=== PATIENT | female | born 1940 | race Caucasian/White ===

== ENCOUNTER 2017-04-07 13:53 | Outpatient (CLI) | payer MEDICARE ==
[2017-04-07 17:55] LABS: BASOPHILS # (AUTO) 0.1 10^3/uL (0.0-0.1); BASOPHILS % (AUTO) 1.1 %; EOSINOPHILS # (AUTO) 0.4 10^3/uL (0.0-0.7); EOSINOPHILS % (AUTO) 4.5 %; HCT - HEMATOCRIT 42.7 % (37.0-47.0); HGB - HEMOGLOBIN 13.8 g/dL (12.0-16.0); LYMPHOCYTES # (AUTO) 1.5 10^3/uL (1.5-3.5); LYMPHOCYTES % (AUTO) 17.7 %; MEAN CORPUSCULAR HEMOGLOBIN 27.9 pg (27.0-31.0); MEAN CORPUSCULAR HGB CONC 32.2 g/dL (32.0-36.0); MEAN CORPUSCULAR VOLUME 86.4 fL (81.0-99.0); MEAN PLATELET VOLUME 8.5 fL (7.9-10.8); MONOCYTES # (AUTO) 0.6 10^3/uL (0.0-1.0); MONOCYTES % (AUTO) 6.7 %; NEUTROPHILS # (AUTO) 5.8 10^3/uL (1.5-6.6); NUCLEATED RED BLOOD CELLS AUTO 0.1 /100WBC; RED BLOOD COUNT 4.94 10^6/uL (4.20-5.40); UNCORRECTED WHITE BLOOD COUNT 8.3 x10^3/uL; WHITE BLOOD COUNT 8.3 x10^3/uL (4.8-10.8)
[2017-04-07 18:34] LABS: PLATELET MORPHOLOGY 1+ GIANT PLATELETS (NORMAL)
== END 2017-04-07 13:54 | disposition home or self-care (01) ==
LOC: LAB.F 13:53
PROVIDERS: ATTEND Family Medicine
DX: D47.3 Essential (hemorrhagic) thrombocythemia (principal)
CPT/HCPCS: 36415; 85025

== ENCOUNTER 2017-04-25 12:46 | Outpatient (CLI) | payer MEDICARE ==
[2017-04-25 19:20] LABS: BASOPHILS # (AUTO) 0.1 10^3/uL (0.0-0.1); BASOPHILS % (AUTO) 1.9 %; EOSINOPHILS # (AUTO) 0.4 10^3/uL (0.0-0.7); EOSINOPHILS % (AUTO) 6.1 %; HCT - HEMATOCRIT 43.8 % (37.0-47.0); HGB - HEMOGLOBIN 13.8 g/dL (12.0-16.0); LYMPHOCYTES # (AUTO) 1.6 10^3/uL (1.5-3.5); LYMPHOCYTES % (AUTO) 23.8 %; MEAN CORPUSCULAR HGB CONC 31.4 g/dL (32.0-36.0); MEAN CORPUSCULAR VOLUME 85.8 fL (81.0-99.0); MEAN PLATELET VOLUME 8.9 fL (7.9-10.8); MONOCYTES # (AUTO) 0.5 10^3/uL (0.0-1.0); MONOCYTES % (AUTO) 7.4 %; NEUTROPHILS # (AUTO) 4.1 10^3/uL (1.5-6.6); NEUTROPHILS % (AUTO) 60.8 %; NUCLEATED RED BLOOD CELLS AUTO 0.1 /100WBC; RED BLOOD COUNT 5.11 10^6/uL (4.20-5.40); UNCORRECTED WHITE BLOOD COUNT 6.7 x10^3/uL; WHITE BLOOD COUNT 6.7 x10^3/uL (4.8-10.8)
[2017-04-25 21:44] LABS: PLATELET ESTIMATE, MANUAL INCREASED (>450,000) (NORMAL); PLATELET MORPHOLOGY 2+ GIANT PLATELETS (NORMAL)
== END 2017-04-25 12:47 | disposition home or self-care (01) ==
LOC: LAB.F 12:46
PROVIDERS: ATTEND Family Medicine
DX: D47.3 Essential (hemorrhagic) thrombocythemia (principal)
CPT/HCPCS: 36415; 85025

== ENCOUNTER 2017-05-23 13:57 | Outpatient (CLI) | payer MEDICARE ==
[2017-05-23 18:48] LABS: BASOPHILS # (AUTO) 0.1 10^3/uL (0.0-0.1); BASOPHILS % (AUTO) 1.9 %; EOSINOPHILS # (AUTO) 0.3 10^3/uL (0.0-0.7); EOSINOPHILS % (AUTO) 4.1 %; HCT - HEMATOCRIT 43.7 % (37.0-47.0); HGB - HEMOGLOBIN 14.2 g/dL (12.0-16.0); LYMPHOCYTES # (AUTO) 1.6 10^3/uL (1.5-3.5); LYMPHOCYTES % (AUTO) 19.9 %; MEAN CORPUSCULAR HEMOGLOBIN 26.7 pg (27.0-31.0); MEAN CORPUSCULAR HGB CONC 32.5 g/dL (32.0-36.0); MEAN PLATELET VOLUME 8.6 fL (7.9-10.8); MONOCYTES # (AUTO) 0.5 10^3/uL (0.0-1.0); MONOCYTES % (AUTO) 5.9 %; NEUTROPHILS # (AUTO) 5.3 10^3/uL (1.5-6.6); NEUTROPHILS % (AUTO) 68.2 %; NUCLEATED RED BLOOD CELLS AUTO 0.2 /100WBC; RED BLOOD COUNT 5.33 10^6/uL (4.20-5.40); RED CELL DISTRIBUTION WIDTH 14.9 % (12.0-15.0); UNCORRECTED WHITE BLOOD COUNT 7.8 x10^3/uL; WHITE BLOOD COUNT 7.8 x10^3/uL (4.8-10.8)
[2017-05-23 21:13] LABS: PLATELET ESTIMATE, MANUAL INCREASED (>450,000) (NORMAL); PLATELET MORPHOLOGY 2+ GIANT PLATELETS (NORMAL)
== END 2017-05-23 13:58 | disposition home or self-care (01) ==
LOC: LAB.F 13:57
PROVIDERS: ATTEND Family Medicine
DX: D47.3 Essential (hemorrhagic) thrombocythemia (principal)
CPT/HCPCS: 36415; 85025

== ENCOUNTER 2017-11-21 12:55 | Outpatient (CLI) | payer MEDICARE ==
--- NOTE | 2017-11-21 15:24 | XRAY Report ---
TWO VIEW CHEST: 11/21/2017 CLINICAL INDICATION: Chronic cough. FINDINGS: Frontal and lateral views of the chest demonstrate a normal cardiac silhouette. There is left suprahilar consolidation, suspicious for a central mass. Chest CT with contrast is recommended for further evaluation. No effusion or pneumothorax is present. IMPRESSION: LEFT SUPRAHILAR CONSOLIDATION, SUSPICIOUS FOR A CENTRAL MASS. CHEST CT WITH CONTRAST IS RECOMMENDED FOR FURTHER EVALUATION. TD: 11/21/2017 15:22
== END 2017-11-21 12:56 | disposition home or self-care (01) ==
LOC: DI.S 12:55
PROVIDERS: ATTEND Nurse Practitioner Family
DX: R91.8 Other nonspecific abnormal finding of lung field (principal)
CPT/HCPCS: 71046; 93005

== ENCOUNTER 2017-11-25 11:37 | Outpatient (CLI) | payer MEDICARE ==
[2017-11-25] MEDS ORDERED: IOPAMIDOL-300 100 ML VIAL ONE (11:55)
[2017-11-25] MEDS ORDERED: IOPAMIDOL-300 100 ML VIAL IVP ONE (13:05)
--- NOTE | 2017-11-25 16:05 | CT Report ---
CT CHEST WITH CONTRAST: 11/25/2017 CLINICAL INDICATION: Chronic cough, hypoxemia. TECHNIQUE: Axial CT images of the chest were obtained with 100 mL Isovue 300 intravenously. COMPARISON: Plain film 11/21/2017. FINDINGS: The heart and great vessels demonstrate mild atherosclerotic calcifications. There is an occlusion of the left upper lobe bronchus, compatible with an endobronchial mass, as well as narrowing of the lingular bronchus. The occlusion of the left upper lobe bronchus produces partial collapse of the left upper lobe, with likely nodules seen in the aerated portions of the left upper lobe measuring up to 1.2 cm. The central component of the collapsed left upper lobe demonstrates heterogeneous internal attenuation, and measures 7.3 x 3.4 cm. A nodule is seen in the superior segment of the right lower lobe, measuring 11 x 11 mm, with a small focus of adjacent infiltrate. Extensive emphysematous changes are seen. No effusion or pneumothorax is present. Limited evaluation of upper abdominal structures demonstrates normal adrenal glands. There is a hypodense lesion in the anterior right lobe of the liver, measuring 2.0 x 1.0 cm, with Hounsfield units higher than expected for a simple cyst, and smaller hypodensities are seen at the dome of the liver (5 mm in diameter), and anteriorly in the medial segment of the left lobe of the liver (5 mm in diameter), suspicious for hepatic metastases. Osseous structures demonstrate degenerative changes. IMPRESSION: LIKELY LEFT UPPER LOBE MALIGNANCY, WITH SATELLITE NODULES AND POSSIBLE CONTRALATERAL SPREAD WELL POSSIBLE HEPATIC METASTATIC DISEASE. GIVEN THE CENTRAL LOCATION, THIS MAY REPRESENT A SMALL CELL CARCINOMA. CORRELATION WITH BRONCHOSCOPY IS RECOMMENDED. In accordance with CT protocol optimization, one or more of the following dose reduction techniques were utilized for this exam: automated exposure control, adjustment of mA and/or KV based on patient size, or use of iterative reconstructive technique. TD: 11/25/2017 16:04
== END 2017-11-25 11:38 | disposition home or self-care (01) ==
LOC: DI 11:37
PROVIDERS: ATTEND Nurse Practitioner Family
DX: R91.8 Other nonspecific abnormal finding of lung field (principal); R05 Cough; R09.02 Hypoxemia; K76.9 Liver disease, unspecified
CPT/HCPCS: 71260; Q9967

== ENCOUNTER 2018-01-05 12:32 | Outpatient (CLI) | payer MEDICARE ==
[2018-01-05 13:16] LABS: CREATININE 0.5 mg/dL (0.4-1.0)
== END 2018-01-05 12:33 | disposition home or self-care (01) ==
LOC: LAB 12:32
PROVIDERS: ATTEND Radiology Radiation Oncology
DX: C34.12 Malignant neoplasm of upper lobe, left bronchus or lung (principal); C79.51 Secondary malignant neoplasm of bone
CPT/HCPCS: 36415; 82565; 84520

== ENCOUNTER 2018-01-06 07:36 | Outpatient (CLI) | payer MEDICARE ==
[2018-01-06] MEDS ORDERED: GADOBUTROL 7.5 MMOL/7.5 ML VIAL ONE (08:00)
[2018-01-06] MEDS ORDERED: GADOBUTROL 7.5 MMOL/7.5 ML VIAL IVP ONE (09:18)
--- NOTE | 2018-01-06 10:21 | MRI Preliminary Report ---
Exam: MRI BRAIN W/WO IMPRESSION: 1. A punctate acute right frontal cortical infarct is suspected. 2. A subtle focus of enhancement in the right temporal lobe as discussed above. It is uncertain if th is reflects a subtle early intracranial metastasis alternatively a low flow vascular lesion such as a small developmental venous anomaly or telangiectasia. A short interval follow-up examination would b e of value to assess for interval change. The ordering physician is being contacted at 10:20 AM on 01/06/2018 [facility] SITE ID: [id number]
--- NOTE | 2018-01-06 10:36 | MRI Preliminary Report ---
Exam: MRI CERVICAL SPINE W/WO IMPRESSION: 1. Low T1-weighted marrow signal which enhances involving the C7 vertebral body is suspicious for met astatic disease given history of lung cancer. 2. No intramedullary enhancement is seen to suggest metastatic disease to the cervical spinal cord. 3. T2 hyperintense signal in the cervical spinal cord at C6 is consistent with myelomalacia. There is central canal stenosis at the level of the C5-C6 disk space. 4. Degenerative disk disease is seen at most levels in the cervical spine particularly at C5-C6. 5. Multilevel foraminal stenosis is present. This is due to a combination of disk/osteophyte complex formation, including joint spurring, and facet hypertrophy 6. Left true vocal cord paralysis is noted [facility] SITE ID: [id number]
--- NOTE | 2018-01-06 10:38 | MRI Report ---
EXAM: MRI BRAIN WITHOUT AND WITH CONTRAST EXAM DATE: 01/06/2018 09:42 AM. CLINICAL HISTORY: Malignant neoplasm of left lung. COMPARISON: PET scan 12/16/2017. Cervical spine MRI from today. TECHNIQUE: Multiplanar, multisequence T1-weighted and fluid-sensitive MR sequences of the brain were performed. Sequences optimized for routine evaluation. Other: None. IV Contrast: 5.5 mL Gadavist. FINDINGS: A punctate focus of restricted diffusion signal is seen involving the right frontal cortex on image 1 68 of series 505 with subtle low ADC map signal seen in this region. Punctate FLAIR hyperintense sign al is seen in this region. Motion degradation is present. Ventricles and sulci are within normal limits. No extra-axial fluid collection is present. No cerebellar tonsillar ectopia is present. Expected flow voids are seen in the major intracranial vessels at the skull base. No abnormal magnetic susceptibility is present in the brain parenchyma. No mass is present in either orbit. In the right temporal lobe there is a 3.6 mm focus of somewhat oval enhancement which appears to invo lve the subcortical white matter and overlying cortex. This is seen on image 71 of series 1303. There is no associated T2 or FLAIR hyperintense signal. There is no associated mass effect. No other abnormal enhancement is present in the brain parenchyma. Expected enhancement is seen in the major dural venous sinuses. The cavernous sinuses enhance in symmetric fashion. IMPRESSION: 1. A punctate acute right frontal cortical infarct is favored over artifact. 2. A subtle focus of enhancement in the right temporal lobe is discussed above. It is uncertain if th is reflects a subtle early intracranial metastasis or, alternatively, a low flow vascular lesion such as a small developmental venous anomaly or telangiectasia. The latter is favored. A short interval f ollow-up examination would be of value to assess for interval change. The ordering physician was phoned with the results at 10:30 AM on 01/06/2018. [facility] Referring Provider Line: [phone] SITE ID: [id number]
--- NOTE | 2018-01-06 11:26 | MRI Report ---
EXAM: MRI CERVICAL SPINE WITHOUT AND WITH CONTRAST EXAM DATE: 01/06/2018 09:42 AM. CLINICAL HISTORY: Malignant neoplasm of upper lobe, left lung. COMPARISON: MRI brain today. PET scan 12/16/2017. No report is available for the PET scan.. TECHNIQUE: Multiplanar, multisequence T1-weighted and fluid-sensitive sequences of the cervical spine before and after administration of intravenous contrast. Other: None. IV contrast: 5.5 mL Gadavist. FINDINGS: There is medial position of the left true vocal cord. There is low T1-weighted signal which enhances, involving the C7 vertebral body particularly towards the left. Low T1-weighted signal which enhances involving the C3, C4, C5, and C6 vertebral bodies is centered o n the endplates and is felt to be diskogenic in nature. No enhancing marrow signal or edema is seen i n the inferior endplate of the C6 vertebral body. No abnormal enhancement is present in the cervical spinal cord. Minimal patchy T2 hyperintense signal in the cervical spinal cord at the level of the C6 vertebral ilene dy on image 8 of series 401 is not excluded Ligamentum flavum thickening is seen at C3-C4, C5-C6, and T1-T2. C2-C3: No central canal or foraminal stenosis. Right facet hypertrophy is noted. C3-C4: A mild broad-based posterior disk protrusion is seen. Disk/osteophyte complex formation is see n involving the posterior lateral margin of the disk bilaterally and there is bilateral uncovertebral joint spurring. Facet hypertrophy is seen on the right. Bilateral foraminal stenosis is seen. Minima l flattening of the ventral cervical spinal cord is noted. C4-C5: Disk/osteophyte complex formation is seen involving the posterior lateral and foraminal margin of the disk. Right facet hypertrophy is present. Bilateral uncovertebral joint spurring is seen. Wale ateral foraminal stenosis. A minimal posterior disk protrusion is seen. C5-C6: Severe loss of disk space height is seen. A posterior protrusion of disk and osteophyte is see n. There is flattening of the ventral cervical spinal cord. Central canal measures 7 mm. Bilateral fo raminal stenosis is present. Bilateral uncovertebral joint spurring is seen. C6-C7: Mild posterior disk protrusion is seen. Bilateral uncovertebral joint spurring is seen. Bilate ral foraminal stenosis is present. No central canal stenosis. C7-T1: No posterior disk protrusion. IMPRESSION: 1. Low T1-weighted marrow signal which enhances involving the C7 vertebral body is suspicious for met astatic disease, given history of lung cancer and the findings on the comparison PET scan. 2. No intramedullary enhancement is seen to suggest metastatic disease to the cervical spinal cord. 3. T2 hyperintense signal in the cervical spinal cord at C6 is consistent with myelomalacia. There is central canal stenosis at the level of the C5-C6 disk space. 4. Degenerative disk disease is seen at most levels in the cervical spine, particularly at C5-C6. 5. Multilevel foraminal stenosis is present. This is due to a combination of disk/osteophyte complex formation, uncovertebral joint spurring, and facet hypertrophy. 6. Left true vocal cord paralysis is noted. [facility] Referring Provider Line: [phone] SITE ID: [id number]
== END 2018-01-06 07:37 | disposition home or self-care (01) ==
LOC: DI 07:36
PROVIDERS: ATTEND Radiology Radiation Oncology
DX: C34.12 Malignant neoplasm of upper lobe, left bronchus or lung (principal); C79.51 Secondary malignant neoplasm of bone; M50.21 Other cervical disc displacement, high cervical region; M47.892 Other spondylosis, cervical region; M50.31 Other cervical disc degeneration, high cervical region; J38.01 Paralysis of vocal cords and larynx, unilateral; R93.7 Abnormal findings on diagnostic imaging of other parts of musculoskeletal system
CPT/HCPCS: 70553; 72156; A9585

== ENCOUNTER 2019-04-17 10:41 | Outpatient (CLI) | payer MEDICARE, OTHER | END 2019-04-17 10:42 | disposition home or self-care (01) | LOC: LAB 10:41 | PROVIDERS: ATTEND Internal Medicine Medical Oncology | DX: C34.10 Malignant neoplasm of upper lobe, unspecified bronchus or lung (principal) | CPT/HCPCS: 36415; 85049 ==

== ENCOUNTER 2019-11-01 13:33 | Outpatient (CLI) | payer MEDICARE, OTHER ==
[2019-11-01 14:12] LABS: BASOPHILS # (AUTO) 0.1 10^3/uL (0.0-0.1); BASOPHILS % (AUTO) 1.2 %; EOSINOPHILS # (AUTO) 0.3 10^3/uL (0.0-0.7); EOSINOPHILS % (AUTO) 4.8 %; HGB - HEMOGLOBIN 14.9 g/dL (12.0-16.0); LYMPHOCYTES # (AUTO) 0.7 10^3/uL (1.5-3.5); LYMPHOCYTES % (AUTO) 12.6 %; MEAN CORPUSCULAR HEMOGLOBIN 29.6 pg (27.0-31.0); MEAN CORPUSCULAR HGB CONC 32.3 g/dL (32.0-36.0); MEAN CORPUSCULAR VOLUME 91.7 fL (81.0-99.0); MEAN PLATELET VOLUME 10.3 fL (7.9-10.8); MONOCYTES # (AUTO) 0.6 10^3/uL (0.0-1.0); MONOCYTES % (AUTO) 10.2 %; NEUTROPHILS # (AUTO) 4.1 10^3/uL (1.5-6.6); NEUTROPHILS % (AUTO) 70.7 %; PLT - PLATELET COUNT 722 10^3/uL (130-450); RED BLOOD COUNT 5.03 10^6/uL (4.20-5.40); RED CELL DISTRIBUTION WIDTH 16.7 % (12.0-15.0); WHITE BLOOD COUNT 5.9 x10^3/uL (4.8-10.8)
== END 2019-11-01 13:34 | disposition home or self-care (01) ==
LOC: LAB 13:33
PROVIDERS: ATTEND Physician Assistant
DX: D47.3 Essential (hemorrhagic) thrombocythemia (principal)
CPT/HCPCS: 36415; 85025

== ENCOUNTER 2019-11-08 09:47 | Outpatient (CLI) | payer MEDICARE, OTHER ==
[2019-11-08 10:44] LABS: BASOPHILS # (AUTO) 0.1 10^3/uL (0.0-0.1); BASOPHILS % (AUTO) 0.9 %; EOSINOPHILS # (AUTO) 0.2 10^3/uL (0.0-0.7); EOSINOPHILS % (AUTO) 2.9 %; HGB - HEMOGLOBIN 14.5 g/dL (12.0-16.0); LYMPHOCYTES # (AUTO) 0.9 10^3/uL (1.5-3.5); LYMPHOCYTES % (AUTO) 12.2 %; MEAN CORPUSCULAR HEMOGLOBIN 29.8 pg (27.0-31.0); MEAN CORPUSCULAR HGB CONC 31.8 g/dL (32.0-36.0); MEAN CORPUSCULAR VOLUME 93.6 fL (81.0-99.0); MEAN PLATELET VOLUME 10.8 fL (7.9-10.8); MONOCYTES # (AUTO) 0.8 10^3/uL (0.0-1.0); MONOCYTES % (AUTO) 10.6 %; NEUTROPHILS # (AUTO) 5.5 10^3/uL (1.5-6.6); NEUTROPHILS % (AUTO) 71.8 %; PLT - PLATELET COUNT 664 10^3/uL (130-450); RED BLOOD COUNT 4.87 10^6/uL (4.20-5.40); RED CELL DISTRIBUTION WIDTH 17.6 % (12.0-15.0); WHITE BLOOD COUNT 7.6 x10^3/uL (4.8-10.8)
== END 2019-11-08 09:48 | disposition home or self-care (01) ==
LOC: LAB 09:47
PROVIDERS: ATTEND Physician Assistant
DX: D47.3 Essential (hemorrhagic) thrombocythemia (principal)
CPT/HCPCS: 36415; 85025

== ENCOUNTER 2019-11-22 11:12 | Outpatient (CLI) | payer MEDICARE, OTHER ==
[2019-11-22 11:38] LABS: BASOPHILS # (AUTO) 0.1 10^3/uL (0.0-0.1); BASOPHILS % (AUTO) 1.3 %; EOSINOPHILS # (AUTO) 0.4 10^3/uL (0.0-0.7); EOSINOPHILS % (AUTO) 6.9 %; HGB - HEMOGLOBIN 14.8 g/dL (12.0-16.0); LYMPHOCYTES # (AUTO) 0.9 10^3/uL (1.5-3.5); LYMPHOCYTES % (AUTO) 14.8 %; MEAN CORPUSCULAR HEMOGLOBIN 29.7 pg (27.0-31.0); MEAN CORPUSCULAR HGB CONC 31.2 g/dL (32.0-36.0); MEAN CORPUSCULAR VOLUME 95.4 fL (81.0-99.0); MEAN PLATELET VOLUME 10.2 fL (7.9-10.8); MONOCYTES # (AUTO) 0.4 10^3/uL (0.0-1.0); MONOCYTES % (AUTO) 6.9 %; NEUTROPHILS # (AUTO) 4.3 10^3/uL (1.5-6.6); NEUTROPHILS % (AUTO) 69.6 %; RED BLOOD COUNT 4.98 10^6/uL (4.20-5.40); RED CELL DISTRIBUTION WIDTH 17.7 % (12.0-15.0); WHITE BLOOD COUNT 6.2 x10^3/uL (4.8-10.8)
[2019-11-22 12:11] LABS: PLATELET MORPHOLOGY 1+ LARGE PLATELETS (NORMAL); PLT - PLATELET COUNT 810 10^3/uL (130-450)
[2019-11-22 12:12] LABS: PLATELET ESTIMATE, MANUAL INCREASED (>450,000) (NORMAL); RBC MORPHOLOGY (MULTIPLE) NORMAL APPEARANCE (NORMAL)
== END 2019-11-22 11:13 | disposition home or self-care (01) ==
LOC: LAB 11:12
PROVIDERS: ATTEND Physician Assistant
DX: D47.3 Essential (hemorrhagic) thrombocythemia (principal)
CPT/HCPCS: 36415; 85025

== ENCOUNTER 2019-11-29 11:21 | Outpatient (CLI) | payer MEDICARE, OTHER ==
[2019-11-29 12:08] LABS: BASOPHILS # (AUTO) 0.1 10^3/uL (0.0-0.1); EOSINOPHILS # (AUTO) 0.2 10^3/uL (0.0-0.7); EOSINOPHILS % (AUTO) 2.4 %; HGB - HEMOGLOBIN 13.8 g/dL (12.0-16.0); LYMPHOCYTES # (AUTO) 0.9 10^3/uL (1.5-3.5); LYMPHOCYTES % (AUTO) 9.4 %; MEAN CORPUSCULAR HGB CONC 31.8 g/dL (32.0-36.0); MEAN CORPUSCULAR VOLUME 94.3 fL (81.0-99.0); MEAN PLATELET VOLUME 10.6 fL (7.9-10.8); MONOCYTES % (AUTO) 10.3 %; NEUTROPHILS # (AUTO) 7.5 10^3/uL (1.5-6.6); NEUTROPHILS % (AUTO) 75.5 %; PLT - PLATELET COUNT 712 10^3/uL (130-450); RED CELL DISTRIBUTION WIDTH 18.1 % (12.0-15.0); WHITE BLOOD COUNT 9.9 x10^3/uL (4.8-10.8)
== END 2019-11-29 11:22 | disposition home or self-care (01) ==
LOC: LAB 11:21
PROVIDERS: ATTEND Physician Assistant
DX: D47.3 Essential (hemorrhagic) thrombocythemia (principal)
CPT/HCPCS: 36415; 85025

== ENCOUNTER 2019-12-13 08:53 | Outpatient (CLI) | payer MEDICARE, OTHER ==
[2019-12-13 09:19] LABS: BASOPHILS # (AUTO) 0.1 10^3/uL (0.0-0.1); BASOPHILS % (AUTO) 1.4 %; EOSINOPHILS # (AUTO) 0.4 10^3/uL (0.0-0.7); EOSINOPHILS % (AUTO) 6.5 %; HGB - HEMOGLOBIN 15.1 g/dL (12.0-16.0); LYMPHOCYTES # (AUTO) 1.1 10^3/uL (1.5-3.5); LYMPHOCYTES % (AUTO) 16.7 %; MEAN CORPUSCULAR HEMOGLOBIN 30.2 pg (27.0-31.0); MEAN CORPUSCULAR HGB CONC 31.7 g/dL (32.0-36.0); MEAN CORPUSCULAR VOLUME 95.4 fL (81.0-99.0); MEAN PLATELET VOLUME 10.2 fL (7.9-10.8); MONOCYTES # (AUTO) 0.5 10^3/uL (0.0-1.0); NEUTROPHILS # (AUTO) 4.4 10^3/uL (1.5-6.6); NEUTROPHILS % (AUTO) 66.8 %; RED CELL DISTRIBUTION WIDTH 17.8 % (12.0-15.0); WHITE BLOOD COUNT 6.6 x10^3/uL (4.8-10.8)
[2019-12-13 12:58] LABS: PLT - PLATELET COUNT 897 10^3/uL (130-450)
== END 2019-12-13 08:54 | disposition home or self-care (01) ==
LOC: LAB 08:53
PROVIDERS: ATTEND Physician Assistant
DX: D47.3 Essential (hemorrhagic) thrombocythemia (principal)
CPT/HCPCS: 36415; 85025

== ENCOUNTER 2019-12-20 11:31 | Outpatient (CLI) | payer MEDICARE, OTHER ==
[2019-12-20 11:54] LABS: BASOPHILS # (AUTO) 0.1 10^3/uL (0.0-0.1); BASOPHILS % (AUTO) 1.4 %; EOSINOPHILS # (AUTO) 0.2 10^3/uL (0.0-0.7); EOSINOPHILS % (AUTO) 3.3 %; HGB - HEMOGLOBIN 14.4 g/dL (12.0-16.0); LYMPHOCYTES # (AUTO) 0.9 10^3/uL (1.5-3.5); LYMPHOCYTES % (AUTO) 12.6 %; MEAN CORPUSCULAR HEMOGLOBIN 29.9 pg (27.0-31.0); MEAN CORPUSCULAR VOLUME 96.5 fL (81.0-99.0); MEAN PLATELET VOLUME 10.4 fL (7.9-10.8); MONOCYTES # (AUTO) 0.7 10^3/uL (0.0-1.0); MONOCYTES % (AUTO) 9.6 %; NEUTROPHILS # (AUTO) 5.3 10^3/uL (1.5-6.6); NEUTROPHILS % (AUTO) 72.4 %; PLT - PLATELET COUNT 733 10^3/uL (130-450); RED BLOOD COUNT 4.81 10^6/uL (4.20-5.40); RED CELL DISTRIBUTION WIDTH 18.7 % (12.0-15.0); WHITE BLOOD COUNT 7.4 x10^3/uL (4.8-10.8)
== END 2019-12-20 11:32 | disposition home or self-care (01) ==
LOC: LAB 11:31
PROVIDERS: ATTEND Physician Assistant
DX: D47.3 Essential (hemorrhagic) thrombocythemia (principal)
CPT/HCPCS: 36415; 85025

== ENCOUNTER 2020-01-10 10:18 | Outpatient (CLI) | payer MEDICARE, OTHER ==
[2020-01-10 10:34] LABS: BASOPHILS # (AUTO) 0.1 10^3/uL (0.0-0.1); BASOPHILS % (AUTO) 1.4 %; EOSINOPHILS # (AUTO) 0.3 10^3/uL (0.0-0.7); EOSINOPHILS % (AUTO) 3.6 %; HGB - HEMOGLOBIN 15.2 g/dL (12.0-16.0); LYMPHOCYTES # (AUTO) 1.1 10^3/uL (1.5-3.5); LYMPHOCYTES % (AUTO) 15.2 %; MEAN CORPUSCULAR HEMOGLOBIN 30.1 pg (27.0-31.0); MEAN CORPUSCULAR HGB CONC 31.4 g/dL (32.0-36.0); MEAN CORPUSCULAR VOLUME 95.8 fL (81.0-99.0); MEAN PLATELET VOLUME 10.3 fL (7.9-10.8); MONOCYTES # (AUTO) 0.8 10^3/uL (0.0-1.0); MONOCYTES % (AUTO) 10.4 %; PLT - PLATELET COUNT 698 10^3/uL (130-450); RED BLOOD COUNT 5.05 10^6/uL (4.20-5.40); RED CELL DISTRIBUTION WIDTH 17.9 % (12.0-15.0); WHITE BLOOD COUNT 7.3 x10^3/uL (4.8-10.8)
== END 2020-01-10 10:19 | disposition home or self-care (01) ==
LOC: LAB 10:18
PROVIDERS: ATTEND Physician Assistant
DX: D47.3 Essential (hemorrhagic) thrombocythemia (principal)
CPT/HCPCS: 36415; 85025

== ENCOUNTER 2020-01-25 10:18 | Outpatient (CLI) | payer MEDICARE, OTHER ==
[2020-01-25 10:35] LABS: BASOPHILS # (AUTO) 0.1 10^3/uL (0.0-0.1); BASOPHILS % (AUTO) 1.4 %; EOSINOPHILS # (AUTO) 0.2 10^3/uL (0.0-0.7); EOSINOPHILS % (AUTO) 4.9 %; HGB - HEMOGLOBIN 15.5 g/dL (12.0-16.0); LYMPHOCYTES % (AUTO) 22.8 %; MEAN CORPUSCULAR HEMOGLOBIN 30.9 pg (27.0-31.0); MEAN CORPUSCULAR HGB CONC 31.6 g/dL (32.0-36.0); MEAN CORPUSCULAR VOLUME 97.8 fL (81.0-99.0); MEAN PLATELET VOLUME 10.2 fL (7.9-10.8); MONOCYTES # (AUTO) 0.5 10^3/uL (0.0-1.0); MONOCYTES % (AUTO) 12.2 %; NEUTROPHILS # (AUTO) 2.5 10^3/uL (1.5-6.6); NEUTROPHILS % (AUTO) 58.2 %; PLT - PLATELET COUNT 595 10^3/uL (130-450); RED BLOOD COUNT 5.02 10^6/uL (4.20-5.40); RED CELL DISTRIBUTION WIDTH 16.8 % (12.0-15.0); WHITE BLOOD COUNT 4.3 x10^3/uL (4.8-10.8)
== END 2020-01-25 10:19 | disposition home or self-care (01) ==
LOC: LAB 10:18
PROVIDERS: ATTEND Physician Assistant
DX: D47.3 Essential (hemorrhagic) thrombocythemia (principal)
CPT/HCPCS: 36415; 85025

== ENCOUNTER 2020-01-31 10:11 | Outpatient (CLI) | payer MEDICARE, OTHER ==
[2020-01-31 10:51] LABS: BASOPHILS # (AUTO) 0.1 10^3/uL (0.0-0.1); BASOPHILS % (AUTO) 1.4 %; EOSINOPHILS # (AUTO) 0.2 10^3/uL (0.0-0.7); EOSINOPHILS % (AUTO) 3.2 %; HGB - HEMOGLOBIN 14.8 g/dL (12.0-16.0); LYMPHOCYTES % (AUTO) 15.3 %; MEAN CORPUSCULAR HEMOGLOBIN 30.5 pg (27.0-31.0); MEAN CORPUSCULAR HGB CONC 31.9 g/dL (32.0-36.0); MEAN CORPUSCULAR VOLUME 95.7 fL (81.0-99.0); MEAN PLATELET VOLUME 10.2 fL (7.9-10.8); MONOCYTES # (AUTO) 0.5 10^3/uL (0.0-1.0); MONOCYTES % (AUTO) 8.1 %; NEUTROPHILS # (AUTO) 4.5 10^3/uL (1.5-6.6); NEUTROPHILS % (AUTO) 71.4 %; PLT - PLATELET COUNT 595 10^3/uL (130-450); RED BLOOD COUNT 4.85 10^6/uL (4.20-5.40); WHITE BLOOD COUNT 6.3 x10^3/uL (4.8-10.8)
== END 2020-01-31 10:12 | disposition home or self-care (01) ==
LOC: LAB 10:11
PROVIDERS: ATTEND Physician Assistant
DX: D47.3 Essential (hemorrhagic) thrombocythemia (principal)
CPT/HCPCS: 36415; 85025

== ENCOUNTER 2020-02-15 11:10 | Outpatient (CLI) | payer MEDICARE, OTHER ==
[2020-02-15 11:39] LABS: BASOPHILS # (AUTO) 0.1 10^3/uL (0.0-0.1); BASOPHILS % (AUTO) 1.4 %; EOSINOPHILS # (AUTO) 0.2 10^3/uL (0.0-0.7); HGB - HEMOGLOBIN 15.2 g/dL (12.0-16.0); LYMPHOCYTES % (AUTO) 19.3 %; MEAN CORPUSCULAR HEMOGLOBIN 31.2 pg (27.0-31.0); MEAN CORPUSCULAR HGB CONC 32.1 g/dL (32.0-36.0); MEAN CORPUSCULAR VOLUME 97.1 fL (81.0-99.0); MEAN PLATELET VOLUME 10.5 fL (7.9-10.8); MONOCYTES # (AUTO) 0.7 10^3/uL (0.0-1.0); MONOCYTES % (AUTO) 13.9 %; NEUTROPHILS % (AUTO) 60.6 %; PLT - PLATELET COUNT 589 10^3/uL (130-450); RED BLOOD COUNT 4.87 10^6/uL (4.20-5.40); RED CELL DISTRIBUTION WIDTH 15.9 % (12.0-15.0)
== END 2020-02-15 11:11 | disposition home or self-care (01) ==
LOC: LAB 11:10
PROVIDERS: ATTEND Physician Assistant
DX: D47.3 Essential (hemorrhagic) thrombocythemia (principal)
CPT/HCPCS: 36415; 85025

== ENCOUNTER 2020-02-22 10:41 | Outpatient (CLI) | payer MEDICARE, OTHER ==
[2020-02-22 10:55] LABS: BASOPHILS # (AUTO) 0.1 10^3/uL (0.0-0.1); BASOPHILS % (AUTO) 1.2 %; EOSINOPHILS # (AUTO) 0.2 10^3/uL (0.0-0.7); EOSINOPHILS % (AUTO) 2.6 %; HGB - HEMOGLOBIN 14.8 g/dL (12.0-16.0); LYMPHOCYTES % (AUTO) 14.4 %; MEAN CORPUSCULAR HEMOGLOBIN 31.1 pg (27.0-31.0); MEAN CORPUSCULAR HGB CONC 32.3 g/dL (32.0-36.0); MEAN CORPUSCULAR VOLUME 96.2 fL (81.0-99.0); MEAN PLATELET VOLUME 10.2 fL (7.9-10.8); MONOCYTES # (AUTO) 0.6 10^3/uL (0.0-1.0); MONOCYTES % (AUTO) 8.4 %; NEUTROPHILS % (AUTO) 72.8 %; PLT - PLATELET COUNT 669 10^3/uL (130-450); RED BLOOD COUNT 4.76 10^6/uL (4.20-5.40); RED CELL DISTRIBUTION WIDTH 16.2 % (12.0-15.0); WHITE BLOOD COUNT 6.8 x10^3/uL (4.8-10.8)
== END 2020-02-22 10:42 | disposition home or self-care (01) ==
LOC: LAB 10:41
PROVIDERS: ATTEND Physician Assistant
DX: D47.3 Essential (hemorrhagic) thrombocythemia (principal)
CPT/HCPCS: 36415; 85025

== ENCOUNTER 2020-03-13 12:27 | Outpatient (CLI) | payer MEDICARE, OTHER ==
[2020-03-13 12:44] LABS: BASOPHILS # (AUTO) 0.1 10^3/uL (0.0-0.1); BASOPHILS % (AUTO) 1.4 %; EOSINOPHILS # (AUTO) 0.2 10^3/uL (0.0-0.7); EOSINOPHILS % (AUTO) 3.1 %; HGB - HEMOGLOBIN 14.8 g/dL (12.0-16.0); MEAN CORPUSCULAR HEMOGLOBIN 31.1 pg (27.0-31.0); MEAN CORPUSCULAR HGB CONC 31.9 g/dL (32.0-36.0); MEAN CORPUSCULAR VOLUME 97.5 fL (81.0-99.0); MEAN PLATELET VOLUME 10.2 fL (7.9-10.8); MONOCYTES # (AUTO) 0.5 10^3/uL (0.0-1.0); MONOCYTES % (AUTO) 8.2 %; NEUTROPHILS # (AUTO) 4.6 10^3/uL (1.5-6.6); PLT - PLATELET COUNT 579 10^3/uL (130-450); RED BLOOD COUNT 4.76 10^6/uL (4.20-5.40); RED CELL DISTRIBUTION WIDTH 17.1 % (12.0-15.0); WHITE BLOOD COUNT 6.5 x10^3/uL (4.8-10.8)
== END 2020-03-13 12:28 | disposition home or self-care (01) ==
LOC: LAB 12:27
PROVIDERS: ATTEND Physician Assistant
DX: D47.3 Essential (hemorrhagic) thrombocythemia (principal)
CPT/HCPCS: 36415; 85025

== ENCOUNTER 2020-05-13 11:24 | Outpatient (CLI) | payer MEDICARE, OTHER ==
[2020-05-13 11:37] LABS: EOSINOPHILS # (AUTO) 0.1 10^3/uL (0.0-0.7); EOSINOPHILS % (AUTO) 2.7 %; HGB - HEMOGLOBIN 14.7 g/dL (12.0-16.0); LYMPHOCYTES # (AUTO) 0.9 10^3/uL (1.5-3.5); LYMPHOCYTES % (AUTO) 21.6 %; MEAN CORPUSCULAR HEMOGLOBIN 33.2 pg (27.0-31.0); MEAN CORPUSCULAR VOLUME 103.8 fL (81.0-99.0); MEAN PLATELET VOLUME 10.4 fL (7.9-10.8); MONOCYTES # (AUTO) 0.5 10^3/uL (0.0-1.0); MONOCYTES % (AUTO) 12.5 %; NEUTROPHILS # (AUTO) 2.5 10^3/uL (1.5-6.6); NEUTROPHILS % (AUTO) 61.5 %; PLT - PLATELET COUNT 402 10^3/uL (130-450); RED BLOOD COUNT 4.43 10^6/uL (4.20-5.40); RED CELL DISTRIBUTION WIDTH 17.2 % (12.0-15.0); WHITE BLOOD COUNT 4.1 x10^3/uL (4.8-10.8)
== END 2020-05-13 11:25 | disposition home or self-care (01) ==
LOC: LAB 11:24
PROVIDERS: ATTEND Internal Medicine Hematology & Oncology
DX: D47.3 Essential (hemorrhagic) thrombocythemia (principal)
CPT/HCPCS: 36415; 85025

== ENCOUNTER 2020-09-14 12:23 | Outpatient (CLI) | payer MEDICARE, OTHER ==
[2020-09-14 12:47] LABS: BASOPHILS % (AUTO) 0.7 %; EOSINOPHILS # (AUTO) 0.1 10^3/uL (0.0-0.7); EOSINOPHILS % (AUTO) 2.3 %; HGB - HEMOGLOBIN 13.9 g/dL (12.0-16.0); LYMPHOCYTES % (AUTO) 23.1 %; MEAN CORPUSCULAR HEMOGLOBIN 34.1 pg (27.0-31.0); MEAN CORPUSCULAR VOLUME 106.4 fL (81.0-99.0); MEAN PLATELET VOLUME 10.7 fL (7.9-10.8); MONOCYTES # (AUTO) 0.6 10^3/uL (0.0-1.0); MONOCYTES % (AUTO) 14.9 %; NEUTROPHILS # (AUTO) 2.5 10^3/uL (1.5-6.6); NEUTROPHILS % (AUTO) 58.1 %; PLT - PLATELET COUNT 406 10^3/uL (130-450); RED BLOOD COUNT 4.08 10^6/uL (4.20-5.40); RED CELL DISTRIBUTION WIDTH 14.5 % (12.0-15.0); WHITE BLOOD COUNT 4.3 x10^3/uL (4.8-10.8)
== END 2020-09-14 12:24 | disposition home or self-care (01) ==
LOC: LAB 12:23
PROVIDERS: ATTEND Internal Medicine Hematology & Oncology
DX: D47.3 Essential (hemorrhagic) thrombocythemia (principal)
CPT/HCPCS: 36415; 85025

== ENCOUNTER 2020-10-24 14:08 | Emergency (ER) | payer MEDICARE, OTHER ==
[2020-10-24] MEDS ORDERED: DIATR MEGLU/DIATRIZOATE SODIUM 120 ML BOTTLE PO STA (14:32)
--- NOTE | 2020-10-24 14:34 | ED Physician Documentation ---
History of Present Illness - Stated complaint Stated Complaint: BACK PX - Chief complaint Chief Complaint: General - History obtained from History obtained from: Patient - History of Present Illness Timing: How many days ago (several) Pain level max: 7 Pain level now: 6 - Additonal information Additional information: Patient is a 79-year-old female who states she has been constipated for the past 10 days. She states it is not unusual for her to go 9 to 10 days without a bowel movement. She states that she has not had any vomiting, no nausea. She contacted her doctor who told her to come to the emergency department. She takes MiraLAX several times a day. And has done so for years. She states that she occasionally does have right-sided back pain. Worse with movement and better with rest. Took Tylenol earlier with some relief. 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 HEENT: Tonsil/Adenoidectomy, Other Derm: Skin cancer surgery - Present Medications Home Medications: Ambulatory Orders Medication Instructions Recorded Confirmed Methylphenidate [Daytrana] 1 each TD BID 01/14/14 01/25/18 Cholecalciferol (Vitamin D3) 4,000 unit PO DAILY 07/14/16 01/25/18 [Vitamin D3] Multivitamin [Multivitamins] 1 tab PO DAILY 07/14/16 01/25/18 [place]-3 Fatty Acids/Fish Oil [Eql 1 cap PO DAILY 07/14/16 01/25/18 [place]-3 Fish Oil 1,000 mg] Azithromycin 250 mg PO DAILY 10/26/17 01/25/18 Azithromycin [Zithromax Tri-Allen] 500 mg PO ONCE 10/26/17 01/25/18 - Allergies Allergies/Adverse Reactions: Allergies Allergy/AdvReac Type Severity Reaction Status Date / Time Tetracyclines Allergy Mild Itching Verified 10/24/20 14:17 IV contrast AdvReac Unknown Uncoded 10/24/20 14:17 PD ED PE NORMAL - Vitals Vital signs reviewed: Yes - General General: Alert and oriented X 3, No acute distress, Well developed/nourished - HEENT HEENT: Moist mucous membranes - Neck Neck: Supple, no meningeal sign - Cardiac Cardiac: RRR, Strong equal pulses - Respiratory Respiratory: No respiratory distress, Clear bilaterally - Abdomen Abdomen: Soft, Non tender, Non distended - Back Back: No CVA TTP, No spinal TTP (No midline tenderness palpation or percussion. No step-off or deformity.) - Derm Derm: Warm and dry - Extremities Extremities: No edema - Neuro Neuro: Alert and oriented X 3 Results - Vitals Vitals: Vital Signs - 24 hr 10/24/20 10/24/20 10/24/20 14:11 14:32 15:57 Temperature 36.8 C Heart Rate 99 86 81 Respiratory 17 16 16 Rate Blood Pressure 140/86 H 148/83 H 122/87 H O2 Saturation 99 100 96 10/24/20 10/24/20 17:11 19:08 Temperature 37.1 C Heart Rate 82 79 Respiratory 16 18 Rate Blood Pressure 157/91 H 145/84 H O2 Saturation 98 100 Oxygen O2 Source Room air - Rads (name of study) KUB Radiology: Prelim report reviewed, EMP read contemporaneously, See rad report (IMPRESSION: No dilated loops of bowel are seen. ) PD MEDICAL DECISION MAKING - ED course Complexity details: reviewed results, re-evaluated patient, considered differential, d/w patient ED course: Oral contrast material made it clear through the small intestine into the colon. No evidence of obstruction. Pain well controlled with Tylenol. No indication for laboratory testing at this time. Patient is well-appearing, nontoxic. Afebrile. Tolerating p.o. without difficulty. No evidence of impaction. No rectal pain. Declines a rectal exam. Patient counseled regarding signs and symptoms for which I believe and urgent re-evaluation would be necessary. Patient with good understanding of and agreement to plan and is comfortable going home at this time This document was made in part using voice recognition software. While efforts are made to proofread this document, sound alike and grammatical errors may occur. Abdomen remained soft, nontender nondistended on serial exam Departure - Departure Disposition: Home, Self Care Clinical Impression: Constipation Qualifiers: Constipation type: unspecified constipation type Qualified Code(s): K59.00 - Constipation, unspecified Condition: Good Instructions: ED Constipation Follow-Up: Provider,Other [Primary Care Provider] - Within 1 week Comments: Drink plenty of water. Return if you worsen. Follow-up with your doctor for f urther care. There are no acute findings on your x-ray today. Discharge Date/Time: 10/24/20 19:16
[2020-10-24] MEDS ORDERED: DIATRIZOATE MEGLU/DIATRIZO SOD 30 ML BOTTLE PO STA (14:35)
[2020-10-24] MEDS ORDERED: ACETAMINOPHEN 325 MG TABLET PO STA (18:11)
--- NOTE | 2020-10-24 18:41 | XRAY Report ---
PROCEDURE: Abdomen 1 View X-Ray INDICATIONS: abd pain, constipation TECHNIQUE: 1 view of the abdomen were acquired. COMPARISON: None FINDINGS: Surgical changes and devices: Pacer leads are seen. Bowel: No pneumoperitoneum. The bowel gas pattern is normal. Dense material can be seen throughout the small bowel and colon. Soft tissues: No masses; visualized solid organ contours appear normal in size. No suspicious abdom inal calcifications. Bones: No suspicious bony abnormalities. Age-appropriate degenerative changes are seen. Mild levoc onvex scoliotic curvature is seen. IMPRESSION: No dilated loops of bowel are seen. Dense material can be seen throughout the small bowel and colon. Please correlate with injections, ely ch as oral contrast or Pepto-Bismol. If clinically appropriate, please consider a follow-up CT of the abdomen and pelvis with IV contrast. 7 however, the dense material within the bowel may cause artifact on a CT. Reviewed by: Franko Mckeon MD on 10/24/2020 5:40 PM [facility] Approved by: Franko Mckeon MD on 10/24/2020 5:40 PM [facility] Station ID: [id number]
[2020-10-24 19:08] VITALS: BP 145/84
== END 2020-10-24 19:16 | disposition home or self-care (01) ==
LOC: ED 14:08
DX: K59.00 Constipation, unspecified (principal)
CPT/HCPCS: 74018; 99283; 99284; A9270; Q9963

== ENCOUNTER 2020-10-29 11:46 | Emergency (ER) | payer MEDICARE, OTHER ==
[2020-10-29] MEDS ORDERED: DEXAMETHASONE 10 MG/ML VIAL IVP STA (12:51)
[2020-10-29] MEDS ORDERED: diphenhydrAMINE INJ 50 MG/ML VIAL IVP STA (12:51)
--- NOTE | 2020-10-29 12:54 | ED Physician Documentation ---
PD HPI BACK PAIN - Stated complaint Stated Complaint: BACK PX - Chief complaint Chief Complaint: Back Pain - History obtained from History obtained from: Patient - History of Present Illness Timing - onset: How many months ago (3) Timing - duration: Months Timing - details: Gradual onset, Still present, Waxing and waning Location: Mid, Lower, Left Quality: Pain, Spasm, Sharp Associated symptoms: No: Fever, Weakness, Numbness, Incontinent of urine, Unable to urinate, Hematuria, Incontinent of stool Improves with: Rest Worsened by: Movement Similar symptoms before: Has not had sx before Recently seen: Emergency Dept - Additional information Additional information: 80-year-old female on maintenance chemotherapy for lung cancer is doing well with her lung cancer and she has developed back pain beginning approximately in July of this past year. Her back pain is worse and now she is having difficulty with any moving around. She came to the emergency department last week thinking this may be related to constipation and she certainly was constipated she took a relief for the constipation her constipation is completely relieved she continues to have the back pain. She is also complaining of urinary urgency with a difficulty in initiating a full stream. He states she feels that she is able to empty her bladder completely. Review of Systems Constitutional: denies: Fever Eyes: denies: Decreased vision Ears: denies: Ear pain Nose: denies: Rhinorrhea / runny nose, Congestion Throat: denies: Sore throat Cardiac: denies: Chest pain / pressure, Palpitations Respiratory: denies: Dyspnea, Cough GI: denies: Abdominal Pain, Nausea, Vomiting, Constipation, Diarrhea : denies: Dysuria, Frequency Skin: denies: Rash Musculoskeletal: reports: Back pain. 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 HEENT: Tonsil/Adenoidectomy, Other Derm: Skin cancer surgery - Present Medications Home Medications: Ambulatory Orders Medication Instructions Recorded Confirmed Methylphenidate [Daytrana] 1 each TD BID 01/14/14 01/25/18 Cholecalciferol (Vitamin D3) 4,000 unit PO DAILY 07/14/16 01/25/18 [Vitamin D3] Multivitamin [Multivitamins] 1 tab PO DAILY 07/14/16 01/25/18 [place]-3 Fatty Acids/Fish Oil [Eql 1 cap PO DAILY 07/14/16 01/25/18 [place]-3 Fish Oil 1,000 mg] Azithromycin 250 mg PO DAILY 10/26/17 01/25/18 Azithromycin [Zithromax Tri-Allen] 500 mg PO ONCE 10/26/17 01/25/18 traMADol [Ultram] 50 - 100 mg PO Q6H PRN #20 tablet 10/29/20 - Allergies Allergies/Adverse Reactions: Allergies Allergy/AdvReac Type Severity Reaction Status Date / Time Tetracyclines Allergy Mild Itching Verified 10/29/20 11:56 IV contrast AdvReac Unknown Uncoded 10/24/20 14:17 - Social History Does the pt smoke?: No Smoking Status: Never smoker Does the pt drink ETOH?: No Does the pt have substance abuse?: No - Immunizations Immunizations are current?: Yes - POLST Patient has POLST: No PD ED PE NORMAL - Vitals Vital signs reviewed: Yes (tachy and hypertensive) - General General: Alert and oriented X 3, No acute distress, Well developed/nourished - HEENT HEENT: Atraumatic, PERRL, EOMI - Neck Neck: Supple, no meningeal sign, No bony TTP - Cardiac Cardiac: RRR, No murmur - Respiratory Respiratory: No respiratory distress, Clear bilaterally - Abdomen Abdomen: Normal bowel sounds, Soft, Non tender, Non distended, No organomegaly - Back Back: No CVA TTP, No spinal TTP, Other (There is tenderness to the back more on the left side and lower and more medial than the kidney on the left side. The left kidney is no tender to palaption. ) - Derm Derm: Normal color, Warm and dry, No rash - Extremities Extremities: No deformity, No edema - Neuro Neuro: Alert and oriented X 3, water main pipe layer 2-12 intact, No motor deficit, No sensory deficit, Normal speech Eye Opening: Spontaneous Motor: Obeys Commands Verbal: Oriented GCS Score: 15 - Psych Psych: Normal mood, Normal affect Results - Vitals Vitals: Vital Signs - 24 hr 10/29/20 10/29/20 11:57 15:39 Temperature 36.5 C 36.9 C Heart Rate 101 H 94 Respiratory 20 18 Rate Blood Pressure 137/78 H 145/80 H O2 Saturation 97 98 Oxygen O2 Source Room air - Labs Labs: Laboratory Tests 10/29/20 10/29/20 10/29/20 13:38 13:38 14:45 WBC 3.2 L RBC 3.17 L Hgb 11.1 L Hct 33.9 L MCV 106.9 H MCH 35.0 H MCHC 32.7 RDW 14.2 Plt Count 224 MPV 10.2 Neut # (Auto) 2.3 Lymph # (Auto) 0.4 L [place] # (Auto) 0.5 Eos # (Auto) 0.0 Baso # (Auto) 0.0 Absolute Nucleated RBC 0.00 Nucleated RBC % 0.0 Sodium 141 Potassium 3.1 L Chloride 110 Carbon Dioxide 18 L Anion Gap 13.0 BUN 9 Creatinine 0.4 Estimated GFR (MDRD) 154 Glucose 69 L Calcium 7.9 L Total Bilirubin 0.9 AST 17 ALT 13 Alkaline Phosphatase 70 Total Protein 4.6 L Albumin 2.9 L Globulin 1.7 L Albumin/Globulin Ratio 1.7 Lipase 23 Urine Color YELLOW Urine Clarity CLEAR Urine pH 6.0 Ur Specific [place] <=1.005 Urine Protein NEGATIVE Urine Glucose (UA) NEGATIVE Urine Ketones 40 H Urine Occult Blood NEGATIVE Urine Nitrite NEGATIVE Urine Bilirubin NEGATIVE Urine Urobilinogen 0.2 (NORMAL) Ur Leukocyte Esterase NEGATIVE Ur Microscopic Review NOT INDICATED Urine Culture Comments NOT INDICATED Procedures - Bedside sono Bedside sono by EMP: With use of bedside ultrasound the left kidney is imaged it is sonographically nontender and there is there is no evidence of hydronephrosis. The bladder is imaged there is urine in the bladder it is not overdistended. PD MEDICAL DECISION MAKING - ED course Complexity details: reviewed old records, reviewed results, re-evaluated patient, considered differential, d/w patient ED course: 80-year-old female undergoing maintenance chemotherapy for lung cancer has had pain in her back now for 3 months and today we have done a CT scan of her abdomen pelvis considering other causes of back pain and on that scan we have discovered she has 2 compression fractures at L1 and T12 the compression fracture at T12 is concerning for the possibility of a pathologic fracture. I have contacted the patient's oncologist Dr. Mora and she will do the follow-up MRI imaging to consider the need for further treatment. Here in the emergency department the patient is given Dexamethasone and diphenhydramine for pretreatment of contrast allergy. She is eventually given tramadol for her pain. She is reluctant to take these medications as she had some constipation that she does not want to reexperience. Departure - Departure Disposition: 01 Home, Self Care Clinical Impression: Compression fracture Condition: Stable Instructions: ED Fx Comp Vertebral Follow-Up: Huong Mora [Other] Prescriptions: traMADol [Ultram] 50 - 100 mg PO Q6H PRN #20 tablet PRN Reason: Pain Comments: Today it appears the pain you are having in your back is related to a compression fracture. This will usually last about 6 weeks and may require some narcotic pain reliever. This fracture will need further investigation with an MRI and your oncologist will help you schedule that. In the meantime we are going to try some tramadol as a pain medication. This is a narcotic and will cause some constipation. My recommendation is to use a stimulant laxative such as milk of magnesia within 2 days of not having a bowel movement. Discharge Date/Time: 10/29/20 15:52
[2020-10-29] MEDS ORDERED: IOVERSOL 320 100 ML VIAL IVP ONE ×2 (13:36→15:16)
[2020-10-29 13:46] LABS: BASOPHILS % (AUTO) 0.6 %; EOSINOPHILS % (AUTO) 0.9 %; HGB - HEMOGLOBIN 11.1 g/dL (12.0-16.0); LYMPHOCYTES # (AUTO) 0.4 10^3/uL (1.5-3.5); LYMPHOCYTES % (AUTO) 11.5 %; MEAN CORPUSCULAR HGB CONC 32.7 g/dL (32.0-36.0); MEAN CORPUSCULAR VOLUME 106.9 fL (81.0-99.0); MEAN PLATELET VOLUME 10.2 fL (7.9-10.8); MONOCYTES # (AUTO) 0.5 10^3/uL (0.0-1.0); MONOCYTES % (AUTO) 16.1 %; NEUTROPHILS # (AUTO) 2.3 10^3/uL (1.5-6.6); NEUTROPHILS % (AUTO) 70.3 %; PLT - PLATELET COUNT 224 10^3/uL (130-450); RED BLOOD COUNT 3.17 10^6/uL (4.20-5.40); RED CELL DISTRIBUTION WIDTH 14.2 % (12.0-15.0); WHITE BLOOD COUNT 3.2 x10^3/uL (4.8-10.8)
[2020-10-29 14:04] LABS: ALBUMIN 2.9 g/dL (3.2-5.5); ALBUMIN/GLOBULIN RATIO 1.7 (1.0-2.2); BILIRUBIN,TOTAL 0.9 mg/dL (0.2-1.0); CALCIUM 7.9 mg/dL (8.5-10.3); CREATININE 0.4 mg/dL (0.4-1.0); TOTAL PROTEIN 4.6 g/dL (6.7-8.2)
[2020-10-29 14:54] LABS: BILIRUBIN,URINE NEGATIVE (NEGATIVE); GLUCOSE, URINE (UA) NEGATIVE (NEGATIVE); KETONES,URINE (UA) 40 mg/dL (NEGATIVE); LEUKOCYTE ESTERASE, URINE NEGATIVE (NEGATIVE); NITRITE,URINE NEGATIVE (NEGATIVE); OCCULT BLOOD,URINE NEGATIVE (NEGATIVE); PROTEIN,URINE NEGATIVE (NEGATIVE); UROBILINOGEN,URINE 0.2 (NORMAL) E.U./dL (NORMAL)
[2020-10-29 14:55] LABS: CLARITY,URINE CLEAR (CLEAR)
--- NOTE | 2020-10-29 15:01 | CT Report ---
PROCEDURE: Abdomen/Pelvis W INDICATIONS: left flank pain CONTRAST: IV CONTRAST: Optiray 320 ml: 100 PO CONTRAST: *NO PO CONTRAST TECHNIQUE: After the administration of oral and intravenous contrast, 5 mm thick sections acquired from the diap hragms to the symphysis. 5 mm thick coronal and sagittal reformats were acquired. For radiation dos e reduction, the following was used: automated exposure control, adjustment of mA and/or kV accordin g to patient size. COMPARISON: None. FINDINGS: Image quality: Excellent. ABDOMEN: Lung bases: Lung bases are clear. Heart size is normal. Pacemaker. Solid organs: Liver and spleen are normal in size and enhancement. Gallbladder is unremarkable. Bi liary system is non dilated. Pancreas enhances normally. No adrenal nodules. Kidneys demonstrate n ormal size and enhancement, without hydronephrosis. The left kidney is incidentally noted to be malr otated. Peritoneum and bowel: There is mild diffuse wall thickening of the descending colon there is sigmoid diverticulosis. There is diffuse thickening of the wall of the sigmoid colon. No free fluid or air. Nodes and vessels: No retroperitoneal or mesenteric adenopathy by size criteria. Aorta and inferior vena cava are normal in size. Miscellaneous: No ventral hernias. PELVIS: Genitourinary: Bladder wall thickness is normal. Bladder is somewhat distended. Miscellaneous: No inguinal hernias or adenopathy. Bones: There are multiple compression fractures noted. There is a mild chronic T10 superior endplate compression fracture. There is a moderate T12 compression fracture, which may be subacute, and may be pathological. There is a mild superior endplate compression of L1, which may be subacute. There is a mild L2 chronic compression fracture. There is a mild L4 chronic compression fracture. IMPRESSION: 1. Diffuse wall thickening of the descending colon and sigmoid colon. Findings may potentially repres ent infectious versus inflammatory versus ischemic colitis. Infectious versus inflammatory colitis is more likely. 2. Sigmoid diverticulosis. 3. There are numerous compression fractures. This includes a possibly pathologic compression of T12, which may be subacute, as well as a superior endplate compression of L1, which may also be subacute. Comment: Consider lumbar spine MRI for further evaluation. Above discussed with ASHLEY ROLAND at the time of dictation. Reviewed by: Cm Green MD on 10/29/2020 2:59 PM PST Approved by: Cm Green MD on 10/29/2020 2:59 PM [facility] Station ID: [id number]
[2020-10-29 15:39] VITALS: BP 145/80
[2020-10-29] MEDS ORDERED: traMADol 50 MG TABLET PO STA (16:15)
== END 2020-10-29 15:52 | disposition home or self-care (01) ==
LOC: ED 11:46
DX: M48.56XA Collapsed vertebra, not elsewhere classified, lumbar region, initial encounter for fracture (principal); M48.54XA Collapsed vertebra, not elsewhere classified, thoracic region, initial encounter for fracture
CPT/HCPCS: 36415; 74177; 80053; 81003; 83690; 85025; 96374; 99284; J1200; Q9967; 81001; 87086

== ENCOUNTER 2020-12-18 15:45 | Outpatient (CLI) | payer MEDICARE, OTHER ==
[2020-12-18 16:40] LABS: BILIRUBIN,URINE NEGATIVE (NEGATIVE); GLUCOSE, URINE (UA) NEGATIVE (NEGATIVE); KETONES,URINE (UA) NEGATIVE (NEGATIVE); LEUKOCYTE ESTERASE, URINE LARGE (NEGATIVE); NITRITE,URINE POSITIVE (NEGATIVE); OCCULT BLOOD,URINE MODERATE (NEGATIVE); PROTEIN,URINE 100 mg/dL (NEGATIVE); UROBILINOGEN,URINE 1 (NORMAL) E.U./dL (NORMAL)
[2020-12-18 16:47] LABS: BACTERIA,URINE Moderate /HPF (None Seen); CLARITY,URINE CLOUDY (CLEAR); SQUAMOUS EPITHELIAL CELL,UR RARE Squamous (<= Few); WBC,URINE >25 /HPF (0-5)
== END 2020-12-18 15:46 | disposition home or self-care (01) ==
LOC: LAB 15:45
PROVIDERS: ATTEND Internal Medicine Hematology & Oncology
DX: D47.3 Essential (hemorrhagic) thrombocythemia (principal); C34.12 Malignant neoplasm of upper lobe, left bronchus or lung
CPT/HCPCS: 36415; 81001; 85025; 87077; 87086; 87181

== ENCOUNTER 2021-02-25 16:18 | Outpatient (CLI) | payer MEDICARE, OTHER ==
[2021-02-25 16:44] LABS: BASOPHILS % (AUTO) 1.2 %; EOSINOPHILS # (AUTO) 0.1 10^3/uL (0.0-0.7); EOSINOPHILS % (AUTO) 3.5 %; HCT - HEMATOCRIT 43.1 % (37.0-47.0); HGB - HEMOGLOBIN 14.1 g/dL (12.0-16.0); LYMPHOCYTES # (AUTO) 0.8 10^3/uL (1.5-3.5); LYMPHOCYTES % (AUTO) 32.3 %; MEAN CORPUSCULAR HEMOGLOBIN 37.3 pg (27.0-31.0); MEAN CORPUSCULAR HGB CONC 32.7 g/dL (32.0-36.0); MEAN PLATELET VOLUME 10.5 fL (7.9-10.8); MONOCYTES # (AUTO) 0.2 10^3/uL (0.0-1.0); MONOCYTES % (AUTO) 6.6 %; NEUTROPHILS # (AUTO) 1.4 10^3/uL (1.5-6.6); PLT - PLATELET COUNT 164 10^3/uL (130-450); RED BLOOD COUNT 3.78 10^6/uL (4.20-5.40); RED CELL DISTRIBUTION WIDTH 14.6 % (12.0-15.0); WHITE BLOOD COUNT 2.6 x10^3/uL (4.8-10.8)
[2021-02-25 16:50] LABS: SLIDE REVIEW? Indicated
[2021-02-25 17:43] LABS: DIFFERENTIAL COMMENT MANUAL=AUTO DIFF; PLATELET ESTIMATE, MANUAL NORMAL (130-450,000) (NORMAL); PLATELET MORPHOLOGY NORMAL APPEARANCE (NORMAL); RBC MORPHOLOGY (MULTIPLE) 1+ MACROCYTOSIS (NORMAL)
== END 2021-02-25 16:19 | disposition home or self-care (01) ==
LOC: LAB 16:18
PROVIDERS: ATTEND Internal Medicine Hematology & Oncology
DX: D47.3 Essential (hemorrhagic) thrombocythemia (principal)
CPT/HCPCS: 36415; 85025

== ENCOUNTER 2021-03-04 15:52 | Outpatient (CLI) | payer MEDICARE, OTHER ==
[2021-03-04 16:05] LABS: EOSINOPHILS # (AUTO) 0.1 10^3/uL (0.0-0.7); HCT - HEMATOCRIT 41.6 % (37.0-47.0); HGB - HEMOGLOBIN 13.8 g/dL (12.0-16.0); LYMPHOCYTES # (AUTO) 0.9 10^3/uL (1.5-3.5); LYMPHOCYTES % (AUTO) 30.4 %; MEAN CORPUSCULAR HEMOGLOBIN 37.4 pg (27.0-31.0); MEAN CORPUSCULAR HGB CONC 33.2 g/dL (32.0-36.0); MEAN CORPUSCULAR VOLUME 112.7 fL (81.0-99.0); MEAN PLATELET VOLUME 9.8 fL (7.9-10.8); MONOCYTES # (AUTO) 0.3 10^3/uL (0.0-1.0); MONOCYTES % (AUTO) 8.3 %; NEUTROPHILS # (AUTO) 1.7 10^3/uL (1.5-6.6); PLT - PLATELET COUNT 293 10^3/uL (130-450); RED BLOOD COUNT 3.69 10^6/uL (4.20-5.40)
[2021-03-04 16:54] LABS: PLATELET ESTIMATE, MANUAL NORMAL (130-450,000) (NORMAL); PLATELET MORPHOLOGY NORMAL APPEARANCE (NORMAL)
[2021-03-04 16:55] LABS: WBC MORPHOLOGY (MULTIPLE) NORMAL APPEARANCE (NORMAL)
== END 2021-03-04 15:53 | disposition home or self-care (01) ==
LOC: LAB 15:52
PROVIDERS: ATTEND Internal Medicine Hematology & Oncology
DX: D47.3 Essential (hemorrhagic) thrombocythemia (principal)
CPT/HCPCS: 36415; 85025

== ENCOUNTER 2021-03-11 15:05 | Outpatient (CLI) | payer MEDICARE, OTHER ==
[2021-03-11 15:23] LABS: BASOPHILS % (AUTO) 1.5 %; EOSINOPHILS % (AUTO) 2.7 %; HCT - HEMATOCRIT 41.6 % (37.0-47.0); HGB - HEMOGLOBIN 13.6 g/dL (12.0-16.0); LYMPHOCYTES % (AUTO) 29.8 %; MEAN CORPUSCULAR HEMOGLOBIN 36.8 pg (27.0-31.0); MEAN CORPUSCULAR HGB CONC 32.7 g/dL (32.0-36.0); MEAN CORPUSCULAR VOLUME 112.4 fL (81.0-99.0); MEAN PLATELET VOLUME 9.9 fL (7.9-10.8); MONOCYTES % (AUTO) 11.8 %; NEUTROPHILS % (AUTO) 53.8 %; PLT - PLATELET COUNT 344 10^3/uL (130-450); RED CELL DISTRIBUTION WIDTH 13.2 % (12.0-15.0); WHITE BLOOD COUNT 2.6 x10^3/uL (4.8-10.8)
[2021-03-11 15:25] LABS: ABNORMAL LYMPHS % (MANUAL) 0 %; BAND NEUTROPHILS % (MANUAL) 0 %
[2021-03-11 15:35] LABS: ALBUMIN 3.8 g/dL (3.2-5.5); ALBUMIN/GLOBULIN RATIO 1.8 (1.0-2.2); BILIRUBIN,TOTAL 0.6 mg/dL (0.2-1.0); CALCIUM 8.9 mg/dL (8.5-10.3); CREATININE 0.7 mg/dL (0.4-1.0); POTASSIUM 3.9 mmol/L (3.5-5.0); TOTAL PROTEIN 5.9 g/dL (6.7-8.2)
[2021-03-11 15:52] LABS: DIFFERENTIAL COMMENT MANUAL DIFFERENTIAL; EOSINOPHILS # (MANUAL) 0.1 10^3/uL (0-0.7); LYMPHOCYTES # (MANUAL) 0.8 10^3/uL (1.5-3.5); LYMPHOCYTES % (MANUAL) 31 %; MONOCYTES # (MANUAL) 0.3 10^3/uL (0.0-1.0); NEUTROPHILS # (MANUAL) 1.4 10^3/uL (1.5-6.6); PLATELET ESTIMATE, MANUAL NORMAL (130-450,000) (NORMAL); PLATELET MORPHOLOGY NORMAL APPEARANCE (NORMAL); RBC MORPHOLOGY (MULTIPLE) 2+ MACROCYTOSIS (NORMAL); WBC MORPHOLOGY (MULTIPLE) NORMAL APPEARANCE (NORMAL)
== END 2021-03-11 15:06 | disposition home or self-care (01) ==
LOC: LAB 15:05
PROVIDERS: ATTEND Physician Assistant
DX: D47.1 Chronic myeloproliferative disease (principal); D47.3 Essential (hemorrhagic) thrombocythemia
CPT/HCPCS: 36415; 80053; 85025

== ENCOUNTER 2021-04-08 15:16 | Outpatient (CLI) | payer MEDICARE, OTHER ==
[2021-04-08 15:27] LABS: BASOPHILS # (AUTO) 0.1 10^3/uL (0.0-0.1); BASOPHILS % (AUTO) 0.9 %; EOSINOPHILS # (AUTO) 0.2 10^3/uL (0.0-0.7); EOSINOPHILS % (AUTO) 2.8 %; HCT - HEMATOCRIT 46.6 % (37.0-47.0); HGB - HEMOGLOBIN 15.5 g/dL (12.0-16.0); LYMPHOCYTES # (AUTO) 0.9 10^3/uL (1.5-3.5); LYMPHOCYTES % (AUTO) 13.2 %; MEAN CORPUSCULAR HEMOGLOBIN 34.7 pg (27.0-31.0); MEAN CORPUSCULAR HGB CONC 33.3 g/dL (32.0-36.0); MEAN CORPUSCULAR VOLUME 104.3 fL (81.0-99.0); MEAN PLATELET VOLUME 10.4 fL (7.9-10.8); MONOCYTES # (AUTO) 0.6 10^3/uL (0.0-1.0); MONOCYTES % (AUTO) 9.4 %; NEUTROPHILS # (AUTO) 4.9 10^3/uL (1.5-6.6); NEUTROPHILS % (AUTO) 73.3 %; PLT - PLATELET COUNT 419 10^3/uL (130-450); RED BLOOD COUNT 4.47 10^6/uL (4.20-5.40); RED CELL DISTRIBUTION WIDTH 12.6 % (12.0-15.0); WHITE BLOOD COUNT 6.7 x10^3/uL (4.8-10.8)
== END 2021-04-08 15:17 | disposition home or self-care (01) ==
LOC: LAB 15:16
PROVIDERS: ATTEND Internal Medicine Hematology & Oncology
DX: D47.3 Essential (hemorrhagic) thrombocythemia (principal)
CPT/HCPCS: 36415; 85025

== ENCOUNTER 2021-05-15 13:47 | Outpatient (CLI) | payer MEDICARE, OTHER ==
[2021-05-15 14:08] LABS: BASOPHILS # (AUTO) 0.1 10^3/uL (0.0-0.1); BASOPHILS % (AUTO) 0.6 %; EOSINOPHILS # (AUTO) 0.2 10^3/uL (0.0-0.7); EOSINOPHILS % (AUTO) 1.6 %; HGB - HEMOGLOBIN 15.6 g/dL (12.0-16.0); LYMPHOCYTES # (AUTO) 2.9 10^3/uL (1.5-3.5); LYMPHOCYTES % (AUTO) 27.5 %; MEAN CORPUSCULAR HEMOGLOBIN 31.6 pg (27.0-31.0); MEAN CORPUSCULAR HGB CONC 31.2 g/dL (32.0-36.0); MEAN CORPUSCULAR VOLUME 101.2 fL (81.0-99.0); MEAN PLATELET VOLUME 10.5 fL (7.9-10.8); MONOCYTES # (AUTO) 0.9 10^3/uL (0.0-1.0); MONOCYTES % (AUTO) 8.5 %; NEUTROPHILS # (AUTO) 6.4 10^3/uL (1.5-6.6); NEUTROPHILS % (AUTO) 61.1 %; PLT - PLATELET COUNT 546 10^3/uL (130-450); RED BLOOD COUNT 4.94 10^6/uL (4.20-5.40); RED CELL DISTRIBUTION WIDTH 13.6 % (12.0-15.0); WHITE BLOOD COUNT 10.5 x10^3/uL (4.8-10.8)
== END 2021-05-15 13:48 | disposition home or self-care (01) ==
LOC: LAB 13:47
PROVIDERS: ATTEND Internal Medicine Hematology & Oncology
DX: D47.3 Essential (hemorrhagic) thrombocythemia (principal)
CPT/HCPCS: 36415; 85025

== ENCOUNTER 2021-06-12 13:06 | Outpatient (CLI) | payer MEDICARE, OTHER ==
[2021-06-12 13:29] LABS: BASOPHILS # (AUTO) 0.1 10^3/uL (0.0-0.1); BASOPHILS % (AUTO) 0.8 %; EOSINOPHILS # (AUTO) 0.1 10^3/uL (0.0-0.7); EOSINOPHILS % (AUTO) 2.3 %; HCT - HEMATOCRIT 45.9 % (37.0-47.0); HGB - HEMOGLOBIN 14.5 g/dL (12.0-16.0); LYMPHOCYTES # (AUTO) 1.1 10^3/uL (1.5-3.5); LYMPHOCYTES % (AUTO) 17.6 %; MEAN CORPUSCULAR HEMOGLOBIN 31.2 pg (27.0-31.0); MEAN CORPUSCULAR HGB CONC 31.6 g/dL (32.0-36.0); MEAN CORPUSCULAR VOLUME 98.7 fL (81.0-99.0); MEAN PLATELET VOLUME 10.4 fL (7.9-10.8); MONOCYTES # (AUTO) 0.5 10^3/uL (0.0-1.0); MONOCYTES % (AUTO) 8.8 %; NEUTROPHILS # (AUTO) 4.3 10^3/uL (1.5-6.6); NEUTROPHILS % (AUTO) 69.5 %; PLT - PLATELET COUNT 435 10^3/uL (130-450); RED BLOOD COUNT 4.65 10^6/uL (4.20-5.40); WHITE BLOOD COUNT 6.2 x10^3/uL (4.8-10.8)
== END 2021-06-12 13:07 | disposition home or self-care (01) ==
LOC: LAB 13:06
PROVIDERS: ATTEND Internal Medicine Hematology & Oncology
DX: D47.3 Essential (hemorrhagic) thrombocythemia (principal)
CPT/HCPCS: 36415; 85025

== ENCOUNTER 2021-07-09 15:00 | Outpatient (CLI) | payer MEDICARE, OTHER ==
[2021-07-09 15:14] LABS: BASOPHILS # (AUTO) 0.1 10^3/uL (0.0-0.1); BASOPHILS % (AUTO) 0.7 %; EOSINOPHILS # (AUTO) 0.2 10^3/uL (0.0-0.7); EOSINOPHILS % (AUTO) 2.4 %; HCT - HEMATOCRIT 46.2 % (37.0-47.0); HGB - HEMOGLOBIN 15.1 g/dL (12.0-16.0); LYMPHOCYTES # (AUTO) 0.6 10^3/uL (1.5-3.5); LYMPHOCYTES % (AUTO) 8.3 %; MEAN CORPUSCULAR HEMOGLOBIN 31.9 pg (27.0-31.0); MEAN CORPUSCULAR HGB CONC 32.7 g/dL (32.0-36.0); MEAN CORPUSCULAR VOLUME 97.7 fL (81.0-99.0); MEAN PLATELET VOLUME 10.4 fL (7.9-10.8); MONOCYTES # (AUTO) 0.6 10^3/uL (0.0-1.0); MONOCYTES % (AUTO) 8.8 %; NEUTROPHILS # (AUTO) 5.5 10^3/uL (1.5-6.6); NEUTROPHILS % (AUTO) 78.8 %; PLT - PLATELET COUNT 330 10^3/uL (130-450); RED BLOOD COUNT 4.73 10^6/uL (4.20-5.40); RED CELL DISTRIBUTION WIDTH 18.6 % (12.0-15.0)
== END 2021-07-09 15:01 | disposition home or self-care (01) ==
LOC: LAB 15:00
PROVIDERS: ATTEND Internal Medicine Hematology & Oncology
DX: D47.3 Essential (hemorrhagic) thrombocythemia (principal)
CPT/HCPCS: 36415; 85025

== ENCOUNTER 2021-07-31 12:44 | Outpatient (CLI) | payer MEDICARE, OTHER ==
[2021-07-31 13:04] LABS: BASOPHILS # (AUTO) 0.1 10^3/uL (0.0-0.1); BASOPHILS % (AUTO) 0.9 %; EOSINOPHILS # (AUTO) 0.1 10^3/uL (0.0-0.7); EOSINOPHILS % (AUTO) 2.5 %; HCT - HEMATOCRIT 43.9 % (37.0-47.0); HGB - HEMOGLOBIN 13.7 g/dL (12.0-16.0); LYMPHOCYTES # (AUTO) 0.8 10^3/uL (1.5-3.5); LYMPHOCYTES % (AUTO) 14.1 %; MEAN CORPUSCULAR HEMOGLOBIN 31.6 pg (27.0-31.0); MEAN CORPUSCULAR HGB CONC 31.2 g/dL (32.0-36.0); MEAN CORPUSCULAR VOLUME 101.2 fL (81.0-99.0); MEAN PLATELET VOLUME 10.7 fL (7.9-10.8); MONOCYTES # (AUTO) 0.6 10^3/uL (0.0-1.0); MONOCYTES % (AUTO) 9.9 %; NEUTROPHILS % (AUTO) 70.8 %; PLT - PLATELET COUNT 404 10^3/uL (130-450); RED BLOOD COUNT 4.34 10^6/uL (4.20-5.40); RED CELL DISTRIBUTION WIDTH 18.1 % (12.0-15.0); WHITE BLOOD COUNT 5.7 x10^3/uL (4.8-10.8)
== END 2021-07-31 12:45 | disposition home or self-care (01) ==
LOC: LAB 12:44
PROVIDERS: ATTEND Internal Medicine Hematology & Oncology
DX: D47.3 Essential (hemorrhagic) thrombocythemia (principal)
CPT/HCPCS: 36415; 85025

== ENCOUNTER 2021-08-14 12:10 | Outpatient (CLI) | payer MEDICARE, OTHER ==
[2021-08-14 12:31] LABS: BASOPHILS % (AUTO) 0.7 %; EOSINOPHILS # (AUTO) 0.1 10^3/uL (0.0-0.7); EOSINOPHILS % (AUTO) 2.5 %; HCT - HEMATOCRIT 42.8 % (37.0-47.0); LYMPHOCYTES # (AUTO) 0.8 10^3/uL (1.5-3.5); LYMPHOCYTES % (AUTO) 14.2 %; MEAN CORPUSCULAR HEMOGLOBIN 33.7 pg (27.0-31.0); MEAN CORPUSCULAR HGB CONC 32.7 g/dL (32.0-36.0); MEAN CORPUSCULAR VOLUME 102.9 fL (81.0-99.0); MEAN PLATELET VOLUME 10.2 fL (7.9-10.8); MONOCYTES # (AUTO) 0.4 10^3/uL (0.0-1.0); MONOCYTES % (AUTO) 6.9 %; NEUTROPHILS # (AUTO) 4.2 10^3/uL (1.5-6.6); PLT - PLATELET COUNT 479 10^3/uL (130-450); RED BLOOD COUNT 4.16 10^6/uL (4.20-5.40); RED CELL DISTRIBUTION WIDTH 17.2 % (12.0-15.0); WHITE BLOOD COUNT 5.7 x10^3/uL (4.8-10.8)
== END 2021-08-14 12:11 | disposition home or self-care (01) ==
LOC: LAB 12:10
PROVIDERS: ATTEND Internal Medicine Hematology & Oncology
DX: D47.3 Essential (hemorrhagic) thrombocythemia (principal)
CPT/HCPCS: 36415; 85025

== ENCOUNTER 2021-08-27 11:01 | Outpatient (CLI) | payer MEDICARE, OTHER ==
--- NOTE | 2021-08-27 16:04 | CT Report ---
PROCEDURE: Abdomen/Pelvis WO INDICATIONS: LEFT LUNG CANCER+ TECHNIQUE: Noncontrast 5 mm thick sections acquired from the diaphragms to the symphysis. 5 mm coronal and sagi ttal reformats were then performed. For radiation dose reduction, the following was used: automated exposure control, adjustment of mA and/or kV according to patient size. COMPARISON: October 29, 2020. FINDINGS: Inferior chest: Please refer to the dedicated CT chest report of same day. Gallbladder: Contracted in appearance of the gallbladder, which may contain sludge. Biliary tree: No intra-or extrahepatic biliary ductal dilatation. Liver: The liver demonstrates normal appearance. 2 hypoattenuating lesions are seen in the right hepa tic lobe measuring up to 2 cm, most consistent with cysts. Spleen: Normal size and morphology is seen. Pancreas: Normal morphology without masses or inflammatory changes. Adrenals: Normal size without masses. Kidneys: Redemonstrated malrotation of the left kidney. No contour deforming solid mass or evidence o f obstructive uropathy. Vasculature: No evidence of aneurysm or other significant vascular pathology. Calcified atheromatou s change of the aorta. Lymphatic system: No pathologic enlargement by size criteria. Bowel: No intestinal obstruction. Sigmoid diverticulosis. Normal appendix. Peritoneum/Retroperitoneum: No free intraperitoneal gas or large collection. Urinary bladder: Not well distended. Pelvic organs: No significant abnormality. Bones/soft tissues: Interval progression of the T12 compression deformity. Interval development of a T11 superior endplate compression deformity. Stable L1 and L4 superior endplate compression deformiti es. Moderate disc height loss with vacuum phenomena at L5-S1. Multilevel vacuum phenomena throughout the thoracolumbar spine. Small fat-containing umbilical hernia. IMPRESSION: 1.Contracted appearance of the gallbladder, which may contain sludge. 2.No CT evidence of metastatic disease. 3.Worsened lower thoracic spine compression deformities as detailed above Reviewed by: Gigi Ervin MD on 08/27/2021 4:03 PM PST Approved by: Gigi Ervin MD on 08/27/2021 4:03 PM PST Station ID: [id number]
--- NOTE | 2021-08-27 16:24 | CT Report ---
PROCEDURE: SOFT TISSUE NECK WO INDICATIONS: LEFT LUNG CA TECHNIQUE: Non-contrast 3.0 mm axial sections acquired from the sella to the aortic arch. Additiona l oblique axial 3.0 mm sections acquired through the pharynx. 3 mm thick coronal reformats were gene rated. For radiation dose reduction, the following was used: automated exposure control, adjustment of mA and/or kV according to patient size. COMPARISON: CT chest 08/27/2021, 11/25/2017 FINDINGS: Image quality: Excellent. Lymph nodes: No enlarged lymph nodes seen throughout the neck. Vessels: Non-opacified vessels appear normal in caliber. Neck spaces: The oropharynx, nasopharynx, and pharynx demonstrate no mucosal lesions. The vocal cor ds, false vocal cords, pyriform sinuses, epiglottis, vallecula, and tongue base all appear normal. E xtramucosal spaces appear unremarkable. Glands: The parotid and submandibular glands appear normal, without stones. The thyroid is normal i n size and there are no incidental findings. Miscellaneous: Visualized brain and orbits appear normal. Partially visualized spiculated left apica l mass is present. Superficial soft tissues appear normal. IMPRESSION: No evidence of head and neck malignancy. Partially visualized spiculated left upper lobe mass most likely related to malignancy given history of lung cancer. Please see CT chest report of 08/27/2021 for further details. CLINICAL RECOMMENDATION STATEMENTS: In patients <35 years with an ITN detected on CT, MRI, or extrathyroidal ultrasound, the Committee re commends further evaluation with dedicated thyroid ultrasound if the nodule is "e1 cm and has no susp icious imaging features, and if the patient has normal life expectancy. In patients "e35 years with an ITN detected on CT, MRI, or extrathyroidal ultrasound, the Committee r ecommends further evaluation with dedicated thyroid ultrasound if the nodule is "e1.5 cm and has no s uspicious imaging features, and if the patient has normal life expectancy. (ACR, 2014) Reviewed by: Kiersten Dominguez MD on 08/27/2021 4:23 PM PST Approved by: Kiersten Dominguez MD on 08/27/2021 4:23 PM PST Station ID: [id number]
--- NOTE | 2021-08-27 17:57 | CT Report ---
PROCEDURE: CHEST WO INDICATIONS: LEFT LUNG CANCER TECHNIQUE: Noncontrast 1mm axial images were acquired from the pulmonary apices to the posterior costophrenic an gles. Axial 5 mm soft tissue kernel reconstructions were performed as well as 8 mm axial MIP and cor onal and sagittal 5 mm reformations. For radiation dose reduction, the following was used: automate d exposure control, adjustment of mA and/or kV according to patient size. COMPARISON: CT chest dated 11/25/2017. CT abdomen pelvis dated 10/29/2020 FINDINGS: Lungs: Consolidative masslike opacity involving the anterior left upper lobe measuring 3.5 x 1.6 cm, previously 7.0 x 3.6 cm on prior study from 11/25/2017. Scattered subsegmental scarring/atelectasis. N o acute consolidation. Diffuse peribronchial cuffing suggestive of nonspecific bronchitis and/or snow ctive airways disease. Upper lobe predominant emphysema. Ill-defined presumed nodular scarring and at electasis also less conspicuous since the prior study. However, there is new focal masslike appearanc e involving the azygoesophageal recess which measures approximately 3.2 x 1.5 cm. This appears to be new since the prior study from 10/29/2020 Pleura: No pleural effusion or pneumothorax. Heart: Normal in size. No pericardial effusion. Moderate coronary artery calcifications. Lymph nodes: Normal. Thyroid: Negative Aorta: Normal in size. Scattered atheromatous calcifications seen in the aorta. Pulmonary arteries: Normal. Esophagus: Normal. Bones: Diffuse spondolytic changes and facet arthropathy. Severe T12 compression fractures seen. Ther e is also height loss involving the T11 and L1 vertebral bodies. This appears progressed since 021 . Upper abdomen: Hepatic cysts or hemangiomas grossly unchanged on image 62/8. IMPRESSION: Interval development of ill-defined mass within the azygoesophageal recess, which is concerning for n eoplasm. Consider further evaluation with PET/CT to assess malignant potential. This appears new sinc e 10/29/2020. Multiple thoracolumbar compression fractures which appear progressed since the prior study dated 10/29. Please correlate clinically and to point tenderness. Reviewed by: Maciej De Luna MD on 08/27/2021 5:56 PM PST Approved by: Maciej De Luna MD on 08/27/2021 5:56 PM [facility] Station ID: [id number]
== END 2021-08-27 11:02 | disposition home or self-care (01) ==
LOC: DI 11:01
PROVIDERS: ATTEND Nurse Practitioner Adult Health
DX: C34.92 Malignant neoplasm of unspecified part of left bronchus or lung (principal); M51.84 Other intervertebral disc disorders, thoracic region; M51.86 Other intervertebral disc disorders, lumbar region; R91.8 Other nonspecific abnormal finding of lung field

== ENCOUNTER 2021-11-10 16:56 | Emergency (ER) | payer MEDICARE, OTHER ==
[2021-11-10] MEDS ORDERED: IOVERSOL 320 100 ML VIAL IVP ONE ×2 (17:42→19:11)
--- NOTE | 2021-11-10 17:42 | ED Physician Documentation ---
PD HPI DYSPNEA - Stated complaint Stated Complaint: SOA/COUGH - Chief complaint Chief Complaint: Resp - History obtained from History obtained from: Patient - History of Present Illness Timing - onset: How many weeks ago (4) Timing - onset during: Rest Timing - duration: Weeks (4) Timing - details: Abrupt onset, Still present, Waxing and waning Inciting event(s): URI, Immobilization/travel, Other (lung cancer) Improved by: O2, Rest Worsened by: Exertion, Coughing Associated symptoms: Cough. No: Fever, Hemoptysis, Wheezing, Chest pain / discomfort, Bilateral edema, Unilateral edema Similar symptoms before: Has not had sx before Recently seen: Other (getting ongoing treatment for adenocarcinoma of the lung.) - Additional information Additional information: 81-year-old female being treated for adenocarcinoma of the lung has developed worsening shortness of breath over the past month. She recalls coming home from a trip to [place] and feeling extremely fatigued. She has developed exertional dyspnea that is partially relieved by rest and this past week she has spent as long as 15 minutes getting to and from the bathroom with shortness of breath and has improvement only with rest. She has developed a cough that is nonproductive she has had negative Covid test. Her oncologist office called us today to warn us that she was coming into the emergency department with potential pulmonary embolism. Review of Systems Constitutional: denies: Fever Eyes: denies: Decreased vision Ears: denies: Ear pain Nose: reports: Congestion Throat: denies: Sore throat Cardiac: reports: Chest pain / pressure, Palpitations. 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 HEENT: Tonsil/Adenoidectomy, Other Derm: Skin cancer surgery - Present Medications Home Medications: Ambulatory Orders Medication Instructions Recorded Confirmed Methylphenidate [Daytrana] 1 each TD BID 01/14/14 01/25/18 Cholecalciferol (Vitamin D3) 4,000 unit PO DAILY 07/14/16 01/25/18 [Vitamin D3] Multivitamin [Multivitamins] 1 tab PO DAILY 07/14/16 01/25/18 [place]-3 Fatty Acids/Fish Oil [Eql 1 cap PO DAILY 07/14/16 01/25/18 [place]-3 Fish Oil 1,000 mg] Azithromycin 250 mg PO DAILY 10/26/17 01/25/18 Azithromycin [Zithromax Tri-[place]] 500 mg PO ONCE 10/26/17 01/25/18 traMADol [Ultram] 50 - 100 mg PO Q6H PRN #20 tablet 10/29/20 - Allergies Allergies/Adverse Reactions: Allergies Allergy/AdvReac Type Severity Reaction Status Date / Time Tetracyclines Allergy Mild Itching Verified 11/10/21 17:02 IV contrast AdvReac Unknown Uncoded 10/24/20 14:17 - Social History Does the pt smoke?: No Smoking Status: Never smoker Does the pt drink ETOH?: No Does the pt have substance abuse?: No - Immunizations Immunizations are current?: Yes - POLST Patient has POLST: No PD ED PE NORMAL - Vitals Vital signs reviewed: Yes (tachy, tachypneic and hypertensive ) - General General: Alert and oriented X 3, Well developed/nourished, Other (acutely short of breath at rest) - HEENT HEENT: Atraumatic, PERRL, EOMI - Neck Neck: Supple, no meningeal sign, No bony TTP - Cardiac Cardiac: No murmur, Other (tachy and regular) - Respiratory Respiratory: Other (tachypneic at rest with diminished breath sounds in the right base. ) - Abdomen Abdomen: Soft, Non tender - Back Back: No CVA TTP, No spinal TTP - Derm Derm: Normal color, Warm and dry, No rash - Extremities Extremities: No deformity, No edema - Neuro Neuro: Alert and oriented X 3, major sales associate 2-12 intact, No motor deficit, No sensory deficit, Normal speech Eye Opening: Spontaneous Motor: Obeys Commands Verbal: Oriented GCS Score: 15 - Psych Psych: Normal mood, Normal affect Results - Vitals Vitals: Vital Signs - 24 hr 11/10/21 11/10/21 11/10/21 17:02 17:40 18:00 Temperature 36.6 C Heart Rate 94 108 H 108 H Respiratory 28 H 27 H 25 H Rate Blood Pressure 148/103 H 143/97 H 143/87 H O2 Saturation 99 96 11/10/21 19:00 Temperature Heart Rate 105 H Respiratory 24 Rate Blood Pressure 147/86 H O2 Saturation 98 Oxygen O2 Source Nasal cannula Oxygen Flow Rate 2 - Labs Labs: Laboratory Tests 11/10/21 11/10/21 11/10/21 17:35 17:35 17:35 WBC 9.0 RBC 3.75 L Hgb 12.7 Hct 39.3 MCV 104.8 H MCH 33.9 H MCHC 32.3 RDW 16.7 H Plt Count 910 H* MPV 10.5 Neut # (Auto) 7.3 H Lymph # (Auto) 0.4 L Stanly # (Auto) 1.0 Eos # (Auto) 0.1 Baso # (Auto) 0.1 Absolute Nucleated RBC 0.00 Nucleated RBC % 0.0 PT 13.6 H INR 1.2 APTT 26.6 Sodium 137 Potassium 3.6 Chloride 100 L Carbon Dioxide 21 Anion Gap 16.0 H BUN 19 Creatinine 0.6 Estimated GFR (MDRD) 96 Glucose 115 H Calcium 8.9 Total Bilirubin 1.0 AST 19 ALT 10 Alkaline Phosphatase 64 Troponin I High Sens B-Natriuretic Peptide Total Protein 5.9 L Albumin 3.1 L Globulin 2.8 Albumin/Globulin Ratio 1.1 Lipase 19 L Nasal Adenovirus (PCR) Nasal B. parapertussis DNA (PCR) Nasal Coronavir 229E PCR Nasal Coronavir HKU1 PCR Nasal Coronavir NL63 PCR Nasal Coronavir OC43 PCR Nasal Enterovir/Rhinovir PCR Nasal Influenza B PCR Nasal Influenza A PCR Nasal Parainfluen 1 PCR Nasal Parainfluen 2 PCR Nasal Parainfluen 3 PCR Nasal Parainfluen 4 PCR Nasal RSV (PCR) Nasal B.pertussis DNA PCR Nasal C.pneumoniae (PCR) Guille Human Metapneumo PCR Nasal M.pneumoniae (PCR) Nasal SARS-CoV-2 (PCR) 11/10/21 11/10/21 11/10/21 17:35 17:35 17:52 WBC RBC Hgb Hct MCV MCH MCHC RDW Plt Count MPV Neut # (Auto) Lymph # (Auto) Stan[place] # (Auto) Eos # (Auto) Baso # (Auto) Absolute Nucleated RBC Nucleated RBC % PT INR APTT Sodium Potassium Chloride Carbon Dioxide Anion Gap BUN Creatinine Estimated GFR (MDRD) Glucose Calcium Total Bilirubin AST ALT Alkaline Phosphatase Troponin I High Sens 42.6 H* B-Natriuretic Peptide 85 Total Protein Albumin Globulin Albumin/Globulin Ratio Lipase Nasal Adenovirus (PCR) NOT DETECTED Nasal B. parapertussis DNA (PCR) NOT DETECTED Nasal Coronavir 229E PCR NOT DETECTED Nasal Coronavir HKU1 PCR NOT DETECTED Nasal Coronavir NL63 PCR NOT DETECTED Nasal Coronavir OC43 PCR NOT DETECTED Nasal Enterovir/Rhinovir PCR NOT DETECTED Nasal Influenza B PCR NOT DETECTED Nasal Influenza A PCR NOT DETECTED Nasal Parainfluen 1 PCR NOT DETECTED Nasal Parainfluen 2 PCR NOT DETECTED Nasal Parainfluen 3 PCR NOT DETECTED Nasal Parainfluen 4 PCR NOT DETECTED Nasal RSV (PCR) NOT DETECTED Nasal B.pertussis DNA PCR NOT DETECTED Nasal C.pneumoniae (PCR) NOT DETECTED Guille Human Metapneumo PCR NOT DETECTED Nasal M.pneumoniae (PCR) NOT DETECTED Nasal SARS-CoV-2 (PCR) NOT DETECTED Procedures - IVC sono (time) 1720 Bedside IVC sono: Other (wide IVC with clot present in lumen.) PD MEDICAL DECISION MAKING - ED course Complexity details: reviewed old records, reviewed results, re-evaluated patient, considered differential, d/w patient ED course: 81 y/o female with history of adenocarcinoma of the left upper lobe has been under treatment since 2018. She presents today with increasing dyspnea on exertion. She looks like she probably has PE when she arrives and a CTA of the chest is obtained showing a large right sided pleural effusion (all the way to the top) and new disease in the right maxx. Her CT read is Impression: 1. No acute pulmonary embolism. 2. New moderate to large right-sided pleural effusion with atelectasis of the adjacent portions of the right lung. The previously seen medial right lower lobe azygos esophageal mass is obscured by the adjacent effusion. 3. Stable left upper lobe masslike opacity. 4. New mediastinal and right hilar lymphadenopathy is seen with nonocclusive mass effect on the right sided pulmonary arteries. Suspicious for progression of metastatic disease. 5. Vertebral compression fractures do not appear significantly changed. At shift change I have discussed with Dr. Sevilla thoracentesis for this unfortunate lady and she has agreed to attempt this. The expectation is markedly improved respirations and ability to discharge to home safely. The patient is not on an anticoagulant. Departure - Departure Clinical Impression: Pleural effusion Condition: Stable Instructions: ED Effusion Pleural, Thoracentesis Dc Follow-Up: Cecille Mir [Primary Care Provider] -
[2021-11-10 17:43] LABS: BASOPHILS # (AUTO) 0.1 10^3/uL (0.0-0.1); BASOPHILS % (AUTO) 0.7 %; EOSINOPHILS # (AUTO) 0.1 10^3/uL (0.0-0.7); EOSINOPHILS % (AUTO) 0.7 %; HCT - HEMATOCRIT 39.3 % (37.0-47.0); HGB - HEMOGLOBIN 12.7 g/dL (12.0-16.0); LYMPHOCYTES # (AUTO) 0.4 10^3/uL (1.5-3.5); LYMPHOCYTES % (AUTO) 4.6 %; MEAN CORPUSCULAR HEMOGLOBIN 33.9 pg (27.0-31.0); MEAN CORPUSCULAR HGB CONC 32.3 g/dL (32.0-36.0); MEAN CORPUSCULAR VOLUME 104.8 fL (81.0-99.0); MEAN PLATELET VOLUME 10.5 fL (7.9-10.8); MONOCYTES % (AUTO) 10.6 %; NEUTROPHILS # (AUTO) 7.3 10^3/uL (1.5-6.6); NEUTROPHILS % (AUTO) 81.3 %; RED BLOOD COUNT 3.75 10^6/uL (4.20-5.40); RED CELL DISTRIBUTION WIDTH 16.7 % (12.0-15.0)
[2021-11-10 17:47] LABS: INR 1.2 (0.8-1.2); PT - PROTHROMBIN TIME 13.6 secs (9.9-12.6)
[2021-11-10 17:54] LABS: PARTIAL THROMBOPLASTIN TIME 26.6 secs (24.9-33.3)
[2021-11-10 17:58] LABS: ALBUMIN 3.1 g/dL (3.2-5.5); ALBUMIN/GLOBULIN RATIO 1.1 (1.0-2.2); CALCIUM 8.9 mg/dL (8.5-10.3); CREATININE 0.6 mg/dL (0.4-1.0); POTASSIUM 3.6 mmol/L (3.5-5.0); TOTAL PROTEIN 5.9 g/dL (6.7-8.2)
[2021-11-10 18:07] LABS: PLT - PLATELET COUNT 910 10^3/uL (130-450)
[2021-11-10] MEDS ORDERED: diphenhydrAMINE INJ 50 MG/ML VIAL IVP STA (18:15)
[2021-11-10] MEDS ORDERED: diphenhydrAMINE INJ 50 MG/ML VIAL ONE (18:22)
[2021-11-10 18:52] LABS: B. PARAPERTUSSIS- RESP PCR PAN NOT DETECTED; B. PERTUSSIS- RESP PCR PANEL NOT DETECTED; C. PNEUMONIAE- RESP PCR PANEL NOT DETECTED; CORONAVIRUS 229E-RESP PCR NOT DETECTED; CORONAVIRUS HKU1-RESP PCR NOT DETECTED; CORONAVIRUS NL63-RESP PCR NOT DETECTED; CORONAVIRUS OC43-RESP PCR NOT DETECTED; HUMAN METAPNEUMOVIRUS NOT DETECTED; INFLUENZA A- RESP PCR PANEL NOT DETECTED; INFLUENZA B - RESP PCR PANEL NOT DETECTED; M. PNEUMONIAE- RESP PCR PANEL NOT DETECTED; PARAINFLUENZA VIRUS 1 NOT DETECTED; PARAINFLUENZA VIRUS 2 NOT DETECTED; PARAINFLUENZA VIRUS 3 NOT DETECTED; PARAINFLUENZA VIRUS 4 NOT DETECTED; RHINOVIRUS/ENTEROVIRUS NOT DETECTED; RSV- RESP PCR PANEL NOT DETECTED; SARS-CoV-2 -RESP PCR PANEL NOT DETECTED
--- NOTE | 2021-11-10 19:25 | CT Report ---
PROCEDURE: ANGIO CHEST W/WO INDICATIONS: soa, clot flapping in the IVC CONTRAST: IV CONTRAST: Optiray 320 ml: 80 PO CONTRAST: *NO PO CONTRAST TECHNIQUE: After the administration of intravenous contrast, 2 mm axial images were acquired from the pulmonary apices to the posterior costophrenic angles during the arterial phase. In addition, 1 mm lung kernel and 5 mm soft tissue kernel reconstructions were performed. 3-dimensional coronal oblique maximum int ensity projection (MIP) reformats, 8 mm axial MIP, and 5 mm coronal and sagittal MPR reformats were t hen performed through the thorax. For radiation dose reduction, the following was used: automated exp osure control, adjustment of mA and/or kV according to patient size. COMPARISON: CT chest 08/27/2021 FINDINGS: Image quality: Excellent. Pulmonary arteries: The main pulmonary artery is normal in size. No filling defect is seen to sugges t pulmonary embolism. There is mild narrowing of the right upper and middle lobe pulmonary arteries s econdary to mass effect from adjacent lymphadenopathy. Lungs and pleura: A moderate right-sided pleural effusion is seen with atelectasis of the majority o f the right lower lobe. Fluid is seen tracking along the right major fissure. Masslike opacity is aga in seen in the medial left upper lobe, which does not appear significant changed in size when compare d to the CT from 08/27/2021. Moderate centrilobular emphysema is seen in the upper lobes, greater on the right. The previously seen masslike lesion in the medial right lower lobe of the azygos esophagea l recess is obscured by adjacent pleural effusion. No pneumothorax is seen. There is narrowing of the bronchus intermedius and right lower lobe pulmonary bronchi. Mediastinum: Enlarged mediastinal and hilar lymph nodes appear new when compared to the prior CT from 08/27/2021. A right hilar lymph node measures approximately 2 cm in short axis diameter (60/5) with mass effect on the adjacent pulmonary arteries. A AP window lymph node measures 1.9 cm in short axis diameter (49/5). A prevascular lymph node measures 1.1 cm in short axis (41/5). Heart size is normal. A small pericardial effusion is present. Thoracic aorta is normal in caliber a nd enhancement. Aortic atherosclerotic calcifications are present. Esophagus is normal in caliber, w ithout hiatal hernia. Bones and chest wall: A cardiac pacemaker is seen with pulse generator in the left chest an associat ed metallic streak artifact. A right chest port is seen with catheter tip at the superior cavoatrial junction. Compression fractures again noted at T11-L1, which do not appear significantly changed. No new osseous lesion is seen. No axillary or supraclavicular adenopathy. The thyroid is normal in size and there are no incidental findings. Abdomen: A hypoattenuating liver lesions appear stable and continue to be probably benign. There is m ild nonspecific nodular thickening of the left adrenal gland that does not appear significantly randall ed. IMPRESSION: 1.No acute pulmonary embolism. 2.New moderate to large right-sided pleural effusion with atelectasis of the adjacent portions of the right lung. The previously seen medial right lower lobe/azygo-esophageal mass is obscured by the adj acent effusion. 3.Stable left upper lobe masslike opacity. 4.New mediastinal and right hilar lymphadenopathy is seen with nonocclusive mass effect on the right sided pulmonary arteries, suspicious for progression of metastatic disease. 5.Vertebral compression fractures do not appear significantly changed. Reviewed by: Anshu Morales MD on 11/10/2021 7:23 PM PST Approved by: Anshu Morales MD on 11/10/2021 7:23 PM PST Station ID: [id number]
[2021-11-10 22:53] LABS: BASOPHILS # (AUTO) 0.1 10^3/uL (0.0-0.1); BASOPHILS % (AUTO) 0.7 %; EOSINOPHILS % (AUTO) 0.2 %; HCT - HEMATOCRIT 38.8 % (37.0-47.0); HGB - HEMOGLOBIN 12.4 g/dL (12.0-16.0); LYMPHOCYTES # (AUTO) 0.4 10^3/uL (1.5-3.5); LYMPHOCYTES % (AUTO) 4.9 %; MEAN CORPUSCULAR HEMOGLOBIN 33.4 pg (27.0-31.0); MEAN CORPUSCULAR VOLUME 104.6 fL (81.0-99.0); MEAN PLATELET VOLUME 10.6 fL (7.9-10.8); MONOCYTES # (AUTO) 0.8 10^3/uL (0.0-1.0); MONOCYTES % (AUTO) 9.5 %; NEUTROPHILS % (AUTO) 81.8 %; RED BLOOD COUNT 3.71 10^6/uL (4.20-5.40); RED CELL DISTRIBUTION WIDTH 16.6 % (12.0-15.0); WHITE BLOOD COUNT 8.5 x10^3/uL (4.8-10.8)
[2021-11-10 22:57] LABS: PLT - PLATELET COUNT 948 10^3/uL (130-450)
--- NOTE | 2021-11-10 23:07 | XRAY Report ---
PROCEDURE: Chest 1 View X-Ray INDICATIONS: chest pain TECHNIQUE: One view of the chest was acquired. COMPARISON: Chest x-ray 11/21/2017 CT chest 11/10/2021 FINDINGS: Surgical changes and devices: Pacemaker. Right Port-A-Cath is present.. Lungs and pleura: There is moderate streaky opacity is noted within the left upper lobe. Right basila r opacity. There is blunting of the right costophrenic angle. Mediastinum: Mediastinal contours appear normal. Heart size is normal. Bones and chest wall: No suspicious bony lesions. Overlying soft tissues appear unremarkable. IMPRESSION: Right basilar opacity most suggestive of mild effusion. Underlying areas of pneumonia, atelectasis or mass lesion of other etiology cannot be excluded. Streaky left upper lobe opacity is present corresponding to masslike focus on CT chest. Please see CT chest report of 11/10/2021 for further details. Reviewed by: Kiersten Dominguez MD on 11/10/2021 11:06 PM PST Approved by: Kiersten Dominguez MD on 11/10/2021 11:06 PM PST Station ID: [id number]
[2021-11-10 23:10] LABS: CC,BF RBC 312000 /mm^3; CC,BF WBC 388 /mm^3
[2021-11-10 23:11] LABS: BF CLARITY BLOODY; BF COLOR BLOODY; BF SOURCE PLEURAL
[2021-11-10 23:49] LABS: LYMPHOCYTES %,BODY FLUID 9 %; MACROPHAGES %,BODY FLUID 1 %; MESOTHELIAL %, BF 74 %; NEUTROPHILS %, BF 16 %
[2021-11-11 00:02] VITALS: BP 148/89
== END 2021-11-11 00:40 | disposition home or self-care (01) ==
LOC: ED 16:56
DX: J90 Pleural effusion, not elsewhere classified (principal); C34.90 Malignant neoplasm of unspecified part of unspecified bronchus or lung
CPT/HCPCS: 32554; 36415; 71045; 71275; 80053; 83690; 83880; 84484; 85025; 85610; 85730; 87070; 87205; 87631; 89051; 89060; 96374; 99284; 99285; J1200; Q9967; 0202U

== ENCOUNTER 2021-11-16 16:20 | Emergency (ER) | payer MEDICARE, OTHER ==
[2021-11-16 16:58] LABS: BASOPHILS % (AUTO) 0.1 %; HCT - HEMATOCRIT 41.8 % (37.0-47.0); LYMPHOCYTES # (AUTO) 0.2 10^3/uL (1.5-3.5); LYMPHOCYTES % (AUTO) 1.1 %; MEAN CORPUSCULAR HEMOGLOBIN 32.8 pg (27.0-31.0); MEAN CORPUSCULAR HGB CONC 31.1 g/dL (32.0-36.0); MEAN CORPUSCULAR VOLUME 105.6 fL (81.0-99.0); MEAN PLATELET VOLUME 11.9 fL (7.9-10.8); MONOCYTES # (AUTO) 0.1 10^3/uL (0.0-1.0); MONOCYTES % (AUTO) 0.6 %; NEUTROPHILS # (AUTO) 13.1 10^3/uL (1.5-6.6); NEUTROPHILS % (AUTO) 97.5 %; PLT - PLATELET COUNT 496 10^3/uL (130-450); RED BLOOD COUNT 3.96 10^6/uL (4.20-5.40); WHITE BLOOD COUNT 13.4 x10^3/uL (4.8-10.8)
--- NOTE | 2021-11-16 17:01 | ED Physician Documentation ---
History of Present Illness - Stated complaint Stated Complaint: FLUID AROUND LUNG, TROUBLE BREATHING - Chief complaint Chief Complaint: Resp - History obtained from History obtained from: Patient - History of Present Illness Timing: Today Pain level max: 0 Pain level now: 0 - Additonal information Additional information: Patient is an 81-year-old female who presents to the emergency department with shortness of breath today. She was seen here recently and on November 10 had a thoracentesis performed. She has a history of lung cancer. She is treated in [place] for this. She is on chemotherapy every 3 weeks. Denies any fevers or cough. She is on 3 L of oxygen at home. She states currently she feels well and does not have any complaints. Review of Systems Ten Systems: 10 systems reviewed and negative Constitutional: denies: Fever, Chills Respiratory: denies: Cough GI: denies: Abdominal Pain, Nausea, Vomiting, Diarrhea Skin: denies: Rash Musculoskeletal: denies: Back pain PD PAST MEDICAL HISTORY - Past Medical History Past Medical History: Yes Cardiovascular: None Respiratory: None Neuro: None Endocrine/Autoimmune: None GI: None : None HEENT: None, Other Psych: None Musculoskeletal: Osteoarthritis Derm: None - Past Surgical History Past Surgical History: Yes General: Colonoscopy, Other Ortho: Arthroscopic surgery /TUBE MOUNTER: Tubal ligation HEENT: Tonsil/Adenoidectomy, Other Derm: Skin cancer surgery - Present Medications Home Medications: Ambulatory Orders Medication Instructions Recorded Confirmed Methylphenidate [Daytrana] 1 each TD BID 01/14/14 01/25/18 Cholecalciferol (Vitamin D3) 4,000 unit PO DAILY 07/14/16 01/25/18 [Vitamin D3] Multivitamin [Multivitamins] 1 tab PO DAILY 07/14/16 01/25/18 [place]-3 Fatty Acids/Fish Oil [Eql 1 cap PO DAILY 07/14/16 01/25/18 [place]-3 Fish Oil 1,000 mg] Azithromycin 250 mg PO DAILY 10/26/17 01/25/18 Azithromycin [Zithromax Tri-Allen] 500 mg PO ONCE 10/26/17 01/25/18 traMADol [Ultram] 50 - 100 mg PO Q6H PRN #20 tablet 10/29/20 - Allergies Allergies/Adverse Reactions: Allergies Allergy/AdvReac Type Severity Reaction Status Date / Time Tetracyclines Allergy Mild Itching Verified 11/16/21 16:31 IV contrast AdvReac Unknown Uncoded 10/24/20 14:17 - Social History Does the pt smoke?: No Smoking Status: Never smoker Does the pt drink ETOH?: No Does the pt have substance abuse?: No - Immunizations Immunizations are current?: Yes - POLST Patient has POLST: No PD ED PE NORMAL - Vitals Vital signs reviewed: Yes - General General: Alert and oriented X 3, No acute distress - HEENT HEENT: Moist mucous membranes - Neck Neck: Supple, no meningeal sign - Cardiac Cardiac: RRR - Respiratory Respiratory: Other (Mildly diminished breath sounds on the right. Clear lungs on the left) - Abdomen Abdomen: Soft, Non tender, Non distended - Derm Derm: Warm and dry - Extremities Extremities: No calf tenderness / cord - Neuro Neuro: Alert and oriented X 3 - Psych Psych: Normal mood, Normal affect Results - Vitals Vitals: Vital Signs - 24 hr 11/16/21 11/16/21 11/16/21 16:31 17:43 18:30 Temperature 36.6 C Heart Rate 105 H 111 H 106 H Respiratory 24 30 H 19 Rate Blood Pressure 130/84 H 106/83 H 101/76 O2 Saturation 88 L 99 98 11/16/21 11/16/21 11/16/21 19:17 20:30 21:56 Temperature 36.5 C 36.5 C Heart Rate 100 100 91 Respiratory 24 24 24 Rate Blood Pressure 149/105 H 140/88 H O2 Saturation 99 99 98 Oxygen O2 Source Nasal cannula Oxygen Flow Rate 3 - Labs Labs: Laboratory Tests 11/16/21 11/16/21 11/16/21 16:51 16:51 18:25 WBC 13.4 H RBC 3.96 L Hgb 13.0 Hct 41.8 MCV 105.6 H MCH 32.8 H MCHC 31.1 L RDW 17.0 H Plt Count 496 H MPV 11.9 H Neut # (Auto) 13.1 H Lymph # (Auto) 0.2 L [place] # (Auto) 0.1 Eos # (Auto) 0.0 Baso # (Auto) 0.0 Absolute Nucleated RBC 0.00 Nucleated RBC % 0.0 PT 11.9 INR 1.1 APTT 20.6 L Sodium 140 Potassium 4.2 Chloride 102 Carbon Dioxide 28 Anion Gap 10.0 BUN 30 H Creatinine 0.6 Estimated GFR (MDRD) 96 Glucose 147 H Calcium 8.3 L Total Bilirubin 0.9 AST 21 ALT 14 Alkaline Phosphatase 64 Total Protein 5.3 L Albumin 2.9 L Globulin 2.4 Albumin/Globulin Ratio 1.2 - Rads (name of study) Chest x-ray Radiology: Final report received, EMP read contemporaneously, See rad report (Pleural effusion unchanged from prior x-ray) PD MEDICAL DECISION MAKING - ED course Complexity details: reviewed results, re-evaluated patient, considered differential, d/w patient ED course: Patient is well-appearing, nontoxic. Afebrile. She is 97 to 100% on 3 L oxygen which is her normal oxygen for home. Chest x-ray does not show an increase in the size of the effusion from [address] scanner unfortunately broke while the patient was in the emergency department. Therefore we cannot obtain a CT scan tonight. She is not in any acute respiratory distress. The patient is apparently going to have a CT scan tomorrow in [place]. She did not roll picker her premedication including steroids for tomorrow. Therefore 50 mg of prednisone was given tonight. She states that this was the premedication dose. This is the dose that was also sent to [facility] for her. Patient will return if she worsens. Would recommend that she obtain a referral from her doctor for radiology to perform regular thoracentesis. Patient and family counseled regarding signs and symptoms for which I believe and urgent re-evaluation would be necessary. Patient with good understanding of and agreement to plan and is comfortable going home at this time This document was made in part using voice recognition software. While efforts are made to proofread this document, sound alike and grammatical errors may occur. Departure - Departure Disposition: Home, Self Care Clinical Impression: Pleural effusion Condition: Good Instructions: ED Effusion Pleural Follow-Up: [facility] [Provider Group] - Within 1 week Comments: Your pleural effusion does not appear significantly changed from a few days ago. As we discussed, unfortunately the CT scanner is inoperable tonight due to malfunction. I would recommend that your doctor send an order to radiology for regular thoracentesis to help drain the effusion when it recurs. This can be scheduled with radiology here. Please return if you worsen. I would continue your oxygen at home as prescribed.
[2021-11-16 17:10] LABS: INR 1.1 (0.8-1.2); PT - PROTHROMBIN TIME 11.9 secs (9.9-12.6)
[2021-11-16 17:18] LABS: PARTIAL THROMBOPLASTIN TIME 20.6 secs (24.9-33.3)
--- NOTE | 2021-11-16 17:45 | XRAY Report ---
PROCEDURE: Chest 2 View X-Ray INDICATIONS: dyspnea, h/o pleural effusion TECHNIQUE: 2 view(s) of the chest. COMPARISON: Chest x-ray dated 11/10/2021 FINDINGS: Surgical changes and devices: Left-sided pacer. Right-sided portacatheter. Lungs and pleura: No pneumothorax. Moderate right pleural effusion. Mild patchy bilateral perihilar opacity. Lungs are clear. Mediastinum: Mediastinal contours are normal. Heart size is normal. Bones and chest wall: No suspicious bony abnormalities. Soft tissues appear unremarkable. IMPRESSION: 1. No change in bilateral pneumonia and right pleural effusion. Reviewed by: Emery Hudson MD on 11/16/2021 5:44 PM PST Approved by: Emery Hudson MD on 11/16/2021 5:44 PM PST Station ID: [id number]
[2021-11-16 18:42] LABS: ALBUMIN 2.9 g/dL (3.2-5.5); ALBUMIN/GLOBULIN RATIO 1.2 (1.0-2.2); BILIRUBIN,TOTAL 0.9 mg/dL (0.2-1.0); CALCIUM 8.3 mg/dL (8.5-10.3); CREATININE 0.6 mg/dL (0.4-1.0); POTASSIUM 4.2 mmol/L (3.5-5.0); TOTAL PROTEIN 5.3 g/dL (6.7-8.2)
[2021-11-16] MEDS ORDERED: predniSONE 20 MG TABLET PO STA (21:42)
[2021-11-16 21:58] VITALS: BP 140/88
== END 2021-11-16 22:13 | disposition home or self-care (01) ==
LOC: ED 16:20
DX: J90 Pleural effusion, not elsewhere classified (principal); D49.1 Neoplasm of unspecified behavior of respiratory system
CPT/HCPCS: 36415; 71046; 80053; 85025; 85610; 85730; 99282; 99284; J7512

== ENCOUNTER 2021-11-20 11:37 | Outpatient (CLI) | payer MEDICARE, OTHER ==
--- NOTE | 2021-11-20 13:20 | XRAY Report ---
PROCEDURE: Chest 2 View X-Ray INDICATIONS: PNEUMOTHORAX ON RIGHT TECHNIQUE: 2 view(s) of the chest. COMPARISON: 11/16/2021 FINDINGS: Surgical changes and devices: Right IJ Mediport. Left subclavian dual-lead pacemaker.. Lungs and pleura: No right-sided pneumothorax. Moderate size residual right pleural effusion and righ t lung base opacity. Mild right perihilar opacity. Left lung is clear. Mediastinum: Mediastinal contours are normal. Heart size is normal. Bones and chest wall: No suspicious bony abnormalities. Stable lower thoracic vertebral body esdras marcelina fractures. Severe degenerative changes in the left glenohumeral joint. Soft tissues appear unrem arkable. IMPRESSION: 1. Decreased size of right pleural effusion. 2. No right pneumothorax. 3. Persistent right perihilar alveolar opacity. 4. Decreased central venous congestion. Reviewed by: Phuong Damon MD on 11/20/2021 1:19 PM PST Approved by: Phuong Damon MD on 11/20/2021 1:19 PM PST Station ID: [id number]
== END 2021-11-20 11:38 | disposition home or self-care (01) ==
LOC: DI 11:37
PROVIDERS: ATTEND Radiology Radiation Oncology
DX: J93.9 Pneumothorax, unspecified (principal); J90 Pleural effusion, not elsewhere classified; R91.8 Other nonspecific abnormal finding of lung field

== ENCOUNTER 2021-11-23 10:08 | Outpatient (CLI) | payer MEDICARE, OTHER | END 2021-11-23 10:09 | disposition critical access hospital (66) | LOC: EMS 10:08 | DX: R06.02 Shortness of breath (principal); R53.1 Weakness | CPT/HCPCS: A0425; A0429 ==

== ENCOUNTER 2021-11-23 10:25 | Emergency (ER) | payer MEDICARE, OTHER ==
--- NOTE | 2021-11-23 11:00 | XRAY Report ---
PROCEDURE: Chest 1 View X-Ray INDICATIONS: chest pain TECHNIQUE: One view of the chest was acquired. COMPARISON: 11/20/2021 and 11/16/2021 FINDINGS: Surgical changes and devices: Left chest wall pacemaker leads are in the region of right atrium and r ight ventricle. Right chest wall Port-A-Cath tip is in SVC.. Lungs and pleura: There is interval increase in amount of right pleural effusion and worsening mild p ulmonary edema. Underlying infiltrates in right lower lung field cannot be excluded. No gross pneumot horax. Mediastinum: Mediastinal contours appear normal. Heart size is mildly enlarged. Bones and chest wall: No suspicious bony lesions. Overlying soft tissues appear unremarkable. IMPRESSION: Interval increase in amount of right-sided pleural effusion and right middle and lower lobe atelectas is. No gross pneumothorax. Mild pulmonary vascular congestion and pulmonary edema. Reviewed by: Austin Gavin MD on 11/23/2021 10:59 AM PST Approved by: Austin Gavin MD on 11/23/2021 10:59 AM [facility] Station ID: [id number]
[2021-11-23 11:20] LABS: BASOPHILS % (AUTO) 1.4 %; EOSINOPHILS % (AUTO) 1.9 %; HGB - HEMOGLOBIN 12.8 g/dL (12.0-16.0); LYMPHOCYTES % (AUTO) 19.1 %; MEAN CORPUSCULAR VOLUME 103.1 fL (81.0-99.0); MEAN PLATELET VOLUME 12.2 fL (7.9-10.8); MONOCYTES % (AUTO) 40.2 %; NEUTROPHILS % (AUTO) 17.3 %; PLT - PLATELET COUNT 429 10^3/uL (130-450); RED BLOOD COUNT 3.88 10^6/uL (4.20-5.40); RED CELL DISTRIBUTION WIDTH 16.5 % (12.0-15.0); WHITE BLOOD COUNT 2.1 x10^3/uL (4.8-10.8)
[2021-11-23 11:26] LABS: SLIDE REVIEW? Indicated
[2021-11-23 11:27] LABS: ABNORMAL LYMPHS % (MANUAL) 0 %
[2021-11-23 11:32] LABS: ALBUMIN 2.6 g/dL (3.2-5.5); CALCIUM 8.5 mg/dL (8.5-10.3); CREATININE 0.5 mg/dL (0.4-1.0); POTASSIUM 4.1 mmol/L (3.5-5.0); TOTAL PROTEIN 5.2 g/dL (6.7-8.2)
[2021-11-23 11:49] LABS: BAND NEUTROPHILS % (MANUAL) 20 %; LYMPHOCYTES % (MANUAL) 10 %; MONOCYTES # (MANUAL) 0.8 10^3/uL (0.0-1.0)
[2021-11-23 11:50] LABS: DIFFERENTIAL COMMENT MANUAL DIFFERENTIAL; LYMPHOCYTES # (MANUAL) 0.5 10^3/uL (1.5-3.5); MYELOCYTES % (MANUAL) 16 %; NEUTROPHILS # (MANUAL) 0.5 10^3/uL (1.5-6.6); REACTIVE LYMPHS % (MANUAL) 12 %
--- NOTE | 2021-11-23 12:29 | ED Physician Documentation ---
History of Present Illness - Stated complaint Stated Complaint: SOA - Chief complaint Chief Complaint: Resp - History obtained from History obtained from: Patient, Family - Additonal information Additional information: The patient comes to the emergency department chief complaint of increasing shortness of breath over the last several days since she was last tapped. The patient has a history of both lung cancer and myeloproliferative disorder, and is followed by Dr. Mora at [facility] for this. The patient is scheduled to have a drain placed in 2 days, but today, it was just extremely short of breath and fatigued and was not able to even get out of bed without help. Patient denies focal weakness. Patient's daughter states that for the last 3 to 4 days, the patient has been too weak to walk. No fevers or chills. No new cough. The patient is normally on 2 to 4 L of oxygen per nasal cannula at home. Per medics, they found her to be 80% on 2-1/2 L, so they turn her up to 4 L in route. This did improve her sats to the mid 90s, and patient did appear more comfortable after being at rest for a few minutes. No other complaints at this time. Review of Systems Ten Systems: 10 systems reviewed and negative Constitutional: reports: Fatigue Eyes: reports: Reviewed and negative Ears: reports: Reviewed and negative Nose: reports: Reviewed and negative Throat: reports: Reviewed and negative Cardiac: reports: Reviewed and negative Respiratory: reports: Dyspnea, Cough GI: reports: Reviewed and negative : reports: Reviewed and negative Skin: reports: Reviewed and negative Musculoskeletal: reports: Reviewed and negative Neurologic: reports: Reviewed and negative Psychiatric: reports: Reviewed and negative Endocrine: reports: Reviewed and negative Immunocompromised: reports: Reviewed and negative PD PAST MEDICAL HISTORY - Past Medical History Cardiovascular: None Respiratory: None Neuro: None Endocrine/Autoimmune: None GI: None : None HEENT: None, Other Psych: None Musculoskeletal: Osteoarthritis Derm: None - Past Surgical History Past Surgical History: Yes General: Colonoscopy, Other Ortho: Arthroscopic surgery /EMERGENCY MEDICAL SERVICES COORDINATOR: Tubal ligation HEENT: Tonsil/Adenoidectomy, Other Derm: Skin cancer surgery - Present Medications Home Medications: Ambulatory Orders Medication Instructions Recorded Confirmed Methylphenidate [Daytrana] 1 each TD BID 01/14/14 01/25/18 Cholecalciferol (Vitamin D3) 4,000 unit PO DAILY 07/14/16 01/25/18 [Vitamin D3] Multivitamin [Multivitamins] 1 tab PO DAILY 07/14/16 01/25/18 [place]-3 Fatty Acids/Fish Oil [Eql 1 cap PO DAILY 07/14/16 01/25/18 [place]-3 Fish Oil 1,000 mg] Azithromycin 250 mg PO DAILY 10/26/17 01/25/18 Azithromycin [Zithromax Tri-Allen] 500 mg PO ONCE 10/26/17 01/25/18 traMADol [Ultram] 50 - 100 mg PO Q6H PRN #20 tablet 10/29/20 - Allergies Allergies/Adverse Reactions: Allergies Allergy/AdvReac Type Severity Reaction Status Date / Time Tetracyclines Allergy Mild Itching Verified 11/23/21 10:46 IV contrast AdvReac Unknown Uncoded 11/23/21 10:46 - Social History Does the pt smoke?: No Smoking Status: Never smoker Does the pt drink ETOH?: No Does the pt have substance abuse?: No - Immunizations Immunizations are current?: Yes - POLST Patient has POLST: No PD ED PE NORMAL - Vitals Vital signs reviewed: Yes - General General: Alert and oriented X 3, Well developed/nourished, Other (Labored respirations, Mild respiratory distress.) - HEENT HEENT: Atraumatic, PERRL, EOMI - Neck Neck: Supple, no meningeal sign - Cardiac Cardiac: RRR, No murmur - Respiratory Respiratory: Clear bilaterally, Other (Lungs are clear, but breath sounds are greatly diminished to absent over the right lung field for the lower two thirds of the field.Moderate respiratory distress, as above.) - Abdomen Abdomen: Soft, Non tender, Non distended - Derm Derm: Normal color, Warm and dry, No rash - Extremities Extremities: No deformity, No edema - Neuro Neuro: Alert and oriented X 3 - Psych Psych: Normal mood, Normal affect Results - Vitals Vitals: Vital Signs - 24 hr 11/23/21 11/23/21 11/23/21 10:46 11:08 11:30 Temperature 36.7 C Heart Rate 120 H 70 74 Respiratory 30 H 26 H 23 Rate Blood Pressure 225/89 H 117/75 110/81 H O2 Saturation 95 100 99 11/23/21 11/23/21 11/23/21 12:00 12:30 13:00 Temperature Heart Rate 70 70 70 Respiratory 22 26 H 20 Rate Blood Pressure 109/80 115/76 117/71 O2 Saturation 95 97 99 11/23/21 11/23/21 11/23/21 13:30 14:00 14:33 Temperature Heart Rate 70 86 70 Respiratory 29 H 16 22 Rate Blood Pressure 98/79 98/68 99/70 O2 Saturation 96 100 97 11/23/21 11/23/21 11/23/21 15:00 15:30 16:30 Temperature Heart Rate 70 70 77 Respiratory 21 19 16 Rate Blood Pressure 122/75 107/69 114/54 L O2 Saturation 99 99 99 11/23/21 17:14 Temperature Heart Rate 109 H Respiratory 16 Rate Blood Pressure 91/75 O2 Saturation 98 Oxygen O2 Source Room air - EKG (time done) 1039 Rate: Rate (enter#) (80) [place]: Normal QRS: LVH Ischemia: T wave inversion (Lead V2 and aVL), Other (ST elevation secondary to LVH) Compare to prior EKG: Changed from prior EKG (2018--irregular rhythm, tachycardia at that time) Computer interpretation: Disagree with computer (Disagree with computer interpretation of "atrial fibrillation". The rhythm is extremely regular, but due to artifact, no P waves are discernible.) - Labs Labs: Laboratory Tests 11/23/21 11/23/21 11/23/21 10:50 10:50 10:50 WBC 2.1 L RBC 3.88 L Hgb 12.8 Hct 40.0 MCV 103.1 H MCH 33.0 H MCHC 32.0 RDW 16.5 H Plt Count 429 MPV 12.2 H Neut # (Auto) Not Reportable Lymph # (Auto) Not Reportable [place] # (Auto) Not Reportable Eos # (Auto) Not Reportable Baso # (Auto) Not Reportable Absolute Nucleated RBC Not Reportable Total Counted 100 Band Neuts % (Manual) 20 H Reactive Lymphs % (Man) 12 Abnorm Lymph % (Manual) 0 Myelocytes % 16 H Nucleated RBC % Not Reportable Neutrophils # (Manual) 0.5 L* Lymphocytes # (Manual) 0.5 L Monocytes # (Manual) 0.8 Eosinophils # (Manual) 0.0 Basophils # (Manual) 0.0 Differential Comment MANUAL DIFFERENTIAL Manual Slide Review Indicated Sodium 135 Potassium 4.1 Chloride 95 L Carbon Dioxide 25 Anion Gap 15.0 H BUN 12 Creatinine 0.5 Estimated GFR (MDRD) 118 Glucose 88 Calcium 8.5 Total Bilirubin 1.0 AST 20 ALT 18 Alkaline Phosphatase 74 Troponin I High Sens 42.7 H* Total Protein 5.2 L Albumin 2.6 L Globulin 2.6 Albumin/Globulin Ratio 1.0 Lipase 24 - Rads (name of study) Chest x-ray Radiology: Final report received, EMP read indepedently, See rad report (Greatly increased her right chest pleural effusion. No pneumothorax.) Procedures - Thoracentesis Preparation: Consent obtained, Sterile prep and drape, Sitting, Local - lidocaine Technique: Catheter over needle, Intercostal space - enter (8), Midscapular line Fluid: Bloody (1200 cc) Aftercare: CXR obtained, No complications, Patient tolerated well, Dressing applied PD MEDICAL DECISION MAKING - ED course Complexity details: reviewed results, re-evaluated patient, considered differential, d/w patient ED course: The patient was worked up with labs, which showed a normal hemoglobin, and a white blood cell count of 2.1. Patient's platelets were normal. Her troponin was found to be stable since the last time we checked it a couple of weeks ago at 42. Thoracentesis was performed as above, with nearly 1200 cc of serosanguineous fluid obtained. The patient was extremely fatigued afterward, though her oxygen saturation did not drop significantly on 2.5 L of oxygen per nasal cannula. I did briefly turn her oxygen up to 3.5 L/min, as the patient was sitting with eyes closed, tachypneic and pursed lip breathing. On reevaluation about 20 minutes later, the patient appeared much improved with O2 saturations of 100% on 3-1/2 L of oxygen. Postprocedural chest x-ray showed improved lung volumes and no pneumothorax. I had a long discussion with the patient's daughter regarding the patient's recent decline, and that it is very important that they have a very guero discussion with oncology to clarify exactly what the patient's prognosis is, so they can determine whether or not to proceed with hospice care. At this point in time, I have had social work involved with the patient and them daughter would like to have the patient placed in respite care so she can arrange some sort of home services. I have also touched base with the patient's oncologist Dr. Mora, and she states she will follow up closely with the patient. The patient will stay in the emergency department for now awaiting arrangement of care. She has received as needed Dilaudid here in the emergency department for her pain. She has been signed out to Dr. Kiran at change of shift, pending final disposition. Departure - Departure Clinical Impression: Pleural effusion
--- NOTE | 2021-11-23 14:04 | XRAY Report ---
PROCEDURE: Post Thoracentesis 1V CXR INDICATIONS: POST THORACENTESIS TECHNIQUE: One view of the chest was acquired. COMPARISON: Films performed earlier the same day 11/23/2021 at 1022 hours FINDINGS: Surgical changes and devices: Accessed right Mediport. Dual-lead left-sided pacemaker. Overlying abdias toring wires.. Lungs and pleura: Decreased size of right pleural effusion with some aeration seen in the right lower lung. Diffuse interstitial thickening bilaterally and small left lateral opacity. No pneumothorax po st right thoracentesis. Mediastinum: Mediastinal contours appear normal. Heart size is normal. Bones and chest wall: No suspicious bony lesions. There are severe degenerative changes involving t he left shoulder. Compression fractures seen in the lower thoracic spine. Overlying soft tissues appe ar unremarkable. IMPRESSION: 1. No pneumothorax post right thoracentesis. 2. Decreased size of right pleural effusion. 3. Persistent diffuse interstitial thickening Reviewed by: Phuong Damon MD on 11/23/2021 2:03 PM PST Approved by: Phuong Damon MD on 11/23/2021 2:03 PM PST Station ID: [id number]
[2021-11-23] MEDS ORDERED: HYDROmorphone 0.5 MG/0.5 ML SYRINGE IVP STA (16:39)
[2021-11-23] MEDS ORDERED: HYDROmorphone 1 MG/ML CARPUJECT IVP PRN (17:11)
[2021-11-24 09:33] VITALS: BP 126/66
[2021-11-24 10:38] LABS: B. PARAPERTUSSIS- RESP PCR PAN NOT DETECTED; B. PERTUSSIS- RESP PCR PANEL NOT DETECTED; C. PNEUMONIAE- RESP PCR PANEL NOT DETECTED; CORONAVIRUS 229E-RESP PCR NOT DETECTED; CORONAVIRUS HKU1-RESP PCR NOT DETECTED; CORONAVIRUS NL63-RESP PCR NOT DETECTED; CORONAVIRUS OC43-RESP PCR NOT DETECTED; HUMAN METAPNEUMOVIRUS NOT DETECTED; INFLUENZA A- RESP PCR PANEL NOT DETECTED; INFLUENZA B - RESP PCR PANEL NOT DETECTED; M. PNEUMONIAE- RESP PCR PANEL NOT DETECTED; PARAINFLUENZA VIRUS 1 NOT DETECTED; PARAINFLUENZA VIRUS 2 NOT DETECTED; PARAINFLUENZA VIRUS 3 NOT DETECTED; PARAINFLUENZA VIRUS 4 NOT DETECTED; RHINOVIRUS/ENTEROVIRUS NOT DETECTED; RSV- RESP PCR PANEL NOT DETECTED; SARS-CoV-2 -RESP PCR PANEL NOT DETECTED
--- NOTE | 2021-11-24 10:57 | ED Physician Documentation ---
ED Addendum - Addendum Addendum: The patient is doing well this morning. Family would like to take her home to follow-up with her oncologist. They are requesting pain medication for home. This will be sent to the pharmacy. I am prescribing a short course of short- acting opioid pain medication for this patient. I have reviewed the patients COMPUTER TECHNOLOGY TRAINER and no concerning findings were noted. I have discussed that the opioids are for short term therapy only, and will not be refilled from the ED. patient and family counseled regarding signs and symptoms for which I believe and urgent re- evaluation would be necessary. Patient with good understanding of and agreement to plan and is comfortable going home at this time This document was made in part using voice recognition software. While efforts are made to proofread this document, sound alike and grammatical errors may occur. Departure - Departure Disposition: Home, Self Care Clinical Impression: Pleural effusion Condition: Good Instructions: ED Effusion Pleural Follow-Up: RUDI RANDHAWA MD [Primary Care Provider] - Within 3 Days Prescriptions: Oxycodone HCl [Roxicodone] 5 - 10 mg PO Q6H PRN #20 tablet PRN Reason: Pain Comments: Your prescriptions were sent to [facility] in [place]. Please follow-up with your doctor for further care. Return if she worsens. I am prescribing a short course of narcotic pain medication for you. These are potentially dangerous and addictive medications that should be used carefully. These medications may constipate you. Take an ldgf-sjz-sawmnau stool softener (docusate) twice daily with plenty of water while taking these medications. If you go 24 hours without a bowel movement, take aacy-pde-zbhfmyq miralax, per package instructions. Do not drink or drive while taking these medications. If you received narcotic or sedating medications while in the emergency department, do not drive for 24 hours. Store this medication in a safe, secure place and out of reach of children. It is a violation of federal law to give or sell this medication to another person or to use in a manner other than prescribed. The ED will not refill narcotic prescriptions, including prescriptions lost or stolen. To dispose of unwanted medications: 1. [facility] at [address] in [place] has a medication drop box. They accept prescription medications (in pill form) Tuesday through Tuesday 9:00 a.m. to 5:00 p.m. 2. The [facility] [employer] accepts prescription medications (in pill form only) for disposal year round. Call for more information. 3. Contact the [facility] for the next [facility] sponsored prescription drug collection event. , [phone], or [phone]; Discharge Date/Time: 11/24/21 11:37
== END 2021-11-24 11:37 | disposition home or self-care (01) ==
LOC: EDUNIT# → ED 10:25
DX: J90 Pleural effusion, not elsewhere classified (principal); C94.6 Myelodysplastic disease, not elsewhere classified; D49.1 Neoplasm of unspecified behavior of respiratory system; Z99.81 Dependence on supplemental oxygen; Z20.822 Contact with and (suspected) exposure to COVID-19
CPT/HCPCS: 32554; 36415; 71045; 80053; 83690; 84484; 85025; 87631; 93005; 96374; 96375; 96376; 99283; 99284; J1170; 0202U